=== PATIENT | female | born 1930 | race Native Hawaiian/Other Pacific Islander ===

== ENCOUNTER 2017-10-13 08:48 | Inpatient (IN) | payer MEDICARE, OTHER ==
--- NOTE | 2017-10-13 09:21 | C.PDOC ---
History Of Present Illness 87-year-old female, PMHx includes Hypertension, and Arthritis in B/L knees, presents to the emergency department with complaints of weakness over the past few days. Son notes that she fell on her left side three days ago and sustained injury to her left shoulder, ribs, and knee. Denies hitting her head. Son notes that she usually uses a walker at home but it has been increasing painful to do some and she has been feeling weaker. Patient denies any chest pain, shortness of breath, decreased appetite, nausea/vomiting, headache or any other associated symptoms. Time Seen by Provider: 10/13/17 09:05 Chief Complaint (Nursing): Lower Extremity Problem/Injury History Per: Patient History/Exam Limitations: no limitations Current Symptoms Are (Timing): Still Present Past Medical History Reviewed: Historical Data, Nursing Documentation, Vital Signs Vital Signs: Last Vital Signs Temp 98.5 F 10/13/17 15:56 Pulse 96 H 10/13/17 15:56 Resp 18 10/13/17 15:56 BP 136/69 10/13/17 15:56 Pulse Ox 95 10/13/17 15:56 - Medical History PMH: HTN Family History: States: No Known Family Hx - Social History Hx Alcohol Use: No Hx Substance Use: No Review Of Systems Constitutional: Positive for: Weakness. Negative for: Fever Cardiovascular: Negative for: Chest Pain, Palpitations Respiratory: Negative for: Shortness of Breath Gastrointestinal: Negative for: Nausea, Vomiting, Abdominal Pain, Diarrhea Musculoskeletal: Positive for: Shoulder Pain, Back Pain, Leg Pain Neurological: Negative for: Weakness, Numbness, Dizziness Physical Exam - Physical Exam Appears: Non-toxic, No Acute Distress Skin: Warm, Dry, No Rash Head: Atraumatic, Normacephalic Eye(s): bilateral: Normal Inspection, EOMI Nose: Normal Oral Mucosa: Moist Lips: Normal Appearing Neck: Normal ROM, Supple Chest: Symmetrical, Tenderness (left chest wall) Cardiovascular: Rhythm Regular Respiratory: Normal Breath Sounds, No Accessory Muscle Use Gastrointestinal/Abdominal: Soft, No Tenderness Back: No CVA Tenderness, No Vertebral Tenderness Extremity: Normal ROM, Tenderness, No Calf Tenderness, Capillary Refill (< 2 sec ), No Deformity, Swelling (diffusely to B/L knees and effusions, (+) mild tenderness to anterior left shoulder) ED Course And Treatment - Laboratory Results Result Diagrams: 10/13/17 09:44 10/13/17 09:44 O2 Sat by Pulse Oximetry: 97 (RA) Pulse Ox Interpretation: Normal - Other Rad left knee X-Ray: Interpreted by Me, Viewed By Me Interpretation: arthritis shoulder X-Ray: Interpreted by Me, Viewed By Me Interpretation: (+) DJD, no fx rib L X-Ray: Interpreted by Me, Viewed By Me Interpretation: no fx or pnuemothorax Progress Note: EKG, Bloodwork, UA, and XRs ordered and reviewed. XR's reveal arthritis. No fracture or acute findings. Patient was ambulated unsuccessfully, states she is feeling weak. Case discussed with Dr Ye Mullen, agrees to admit patient for further observation and treatment. Disposition - Disposition Disposition: HOSPITALIZED Disposition Time: 14:00 Condition: STABLE - Clinical Impression Clinical Impression: Weakness, Unable to ambulate - Scribe Statement The provider has reviewed the documentation as recorded by the Scribe (Dwain Gaspar) All medical record entries made by the Scribe were at my direction and personally dictated by me. I have reviewed the chart and agree that the record accurately reflects my personal performance of the history, physical exam, medical decision making, and the department course for this patient. I have also personally directed, reviewed, and agree with the discharge instructions and disposition.
[2017-10-13 09:51] LABS: BASO % 0.3 % (0.0-2.0); EOS % 0.1 % (0.0-4.0); HEMOGLOBIN 10.7 g/dL (11.0-16.0); LYMPH % 12.5 % (20.0-40.0); MEAN CORPUSCULAR HEMOGLOBIN 30.6 pg (27.0-31.0); MEAN CORPUSCULAR HGB CONC 34.4 g/dL (33.0-37.0); MEAN PLATELET VOLUME 7.6 fL (7.2-11.7); MONO # 1.4 K/uL (0.0-0.8); MONO % 17.9 % (0.0-10.0); NEUT # 5.3 K/uL (1.8-7.0); NEUT % 69.2 % (50.0-75.0); NRBC % 0.1 % (0.0-2.0); RBC 3.5 Mil/uL (3.80-5.20); RED CELL DISTRIBUTION WIDTH 13.6 % (11.5-14.5); WHITE BLOOD COUNT 7.6 K/uL (4.8-10.8)
[2017-10-13 10:10] LABS: ALB/GLOB RATIO 1.1 (1.0-2.1); ALBUMIN 3.5 g/dL (3.5-5.0); ALT/SGPT 31 U/L (9-52); AST/SGOT 35 U/L (14-36); BLOOD UREA NITROGEN 20 mg/dL (7-17); GFR AFRICAN-AMERICAN > 60; GFR NON-AFRICAN AMERICAN > 60
[2017-10-13 11:32] LABS: URINE BILIRUBIN NEGATIVE (NEGATIVE); URINE BLOOD 2+ (NEGATIVE); URINE CLARITY Clear (Clear); URINE COLOR Yellow (YELLOW); URINE GLUCOSE (UA) NORMAL (Normal); URINE LEUKOCYTE ESTERASE NEG Leu/uL (Negative); URINE PROTEIN 1+ mg/dL (NEGATIVE); URINE UROBILINOGEN NORMAL mg/dL (0.2-1.0)
--- NOTE | 2017-10-13 13:13 | RAD ---
PROCEDURE: Left Knee Radiographs. HISTORY: Pain. COMPARISON: None. FINDINGS: BONES: No acute fracture or destructive bony lesion identified. JOINTS: No subluxation or dislocation is appreciate however there is gross lateral joint compartment space narrowing as well as the patellofemoral articulation with prominent articular cortical sclerosis and marginal osteophyte development have advanced osteoarthritis. Moderate similar changes affect the medial femorotibial compartment and there is a degenerative valgus deformity appreciated as well. A mild suprapatellar bursa effusion is evident and medial knee soft tissues appears somewhat edematous. JOINT EFFUSION: As above. OTHER FINDINGS: None. IMPRESSION: Advanced osteoarthritis as discussed above with related valgus deformity appearing mild. No acute fracture, subluxation or dislocation. Medial extracapsular soft tissue edema is suggested. MRI can be utilized for additional detail elevation if warranted.
--- NOTE | 2017-10-13 13:16 | RAD ---
PROCEDURE: Radiographs of the Left Ribs. HISTORY: trauma COMPARISON: None available. TECHNIQUE: Frontal radiograph of the chest and multiple oblique radiographs of the left ribs were obtained. FINDINGS: LEFT RIBS: No fracture or focal lesion visualized. Diffuse osteopenia suggests osteoporosis. OTHER FINDINGS: None. IMPRESSION: No fracture of the left ribs is appreciated. Diffuse osteopenia suggests osteoporosis.
--- NOTE | 2017-10-13 13:18 | RAD ---
PROCEDURE: Radiographs of the Left Shoulder HISTORY: trauma COMPARISON: No prior. FINDINGS: BONES: No acute fracture or destructive bony lesion identified. These osteopenia suggests osteoporosis. JOINTS: Advanced joint space narrowing, cortical sclerosis and marginal osteophyte development at the clinic humeral joint is compatible with osteoarthritis with lesser degenerative changes insert present at the acromioclavicular joint. SOFT TISSUES: Calcific changes superior to the region of the greater tuberosity of the proximal left humerus suggest calcific tendinosis. OTHER FINDINGS: None. IMPRESSION: No acute fracture, subluxation or dislocation evident. Advanced osteoarthritis is appreciate the glenohumeral joint and appears moderate at the acromioclavicular joint with calcific tendinosis suggested in local left shoulder soft tissues.
--- NOTE | 2017-10-13 13:52 | CP.PCM.HP ---
Past Patient History - Past Social History Smoking Status: Never Smoked - CARDIAC Hx Hypertension: Yes - PSYCHIATRIC Hx Substance Use: No Meds Allergies/Adverse Reactions: Allergies Allergy/AdvReac Type Severity Reaction Status Date / Time No Known Allergies Allergy Verified 10/13/17 09:15 Physical Exam - Constitutional Appears: Well - Head Exam Head Exam: ATRAUMATIC, NORMAL INSPECTION, NORMOCEPHALIC - Eye Exam Eye Exam: EOMI, Normal appearance, PERRL Pupil Exam: NORMAL ACCOMODATION, PERRL - ENT Exam ENT Exam: Mucous Membranes Moist, Normal Exam - Neck Exam Neck exam: Positive for: Normal Inspection - Respiratory Exam Respiratory Exam: Decreased Breath Sounds - Cardiovascular Exam Cardiovascular Exam: REGULAR RHYTHM, +S1, +S2 - GI/Abdominal Exam GI & Abdominal Exam: Diminished Bowel Sounds, Soft - Rectal Exam Rectal Exam: Deferred Results - Vital Signs Recent Vital Signs: Last Vital Signs Temp 98.5 F 10/13/17 13:06 Pulse 70 10/13/17 13:06 Resp 17 10/13/17 13:06 BP 120/48 L 10/13/17 13:06 Pulse Ox 97 10/13/17 13:42 - Labs Result Diagrams: 10/13/17 09:44 10/13/17 09:44 Labs: Laboratory Results - last 24 hr 10/13/17 10/13/17 10/13/17 09:44 09:44 11:21 WBC 7.6 RBC 3.50 L Hgb 10.7 L Hct 31.1 L MCV 89.0 MCH 30.6 MCHC 34.4 RDW 13.6 Plt Count 149 MPV 7.6 Neut % (Auto) 69.2 Lymph % (Auto) 12.5 L Cuming % (Auto) 17.9 H Eos % (Auto) 0.1 Baso % (Auto) 0.3 Neut # (Auto) 5.3 Lymph # (Auto) 1.0 Cuming # (Auto) 1.4 H Eos # (Auto) 0.0 Baso # (Auto) 0.0 Sodium 136 Potassium 4.1 Chloride 97 L Carbon Dioxide 27 Anion Gap 17 BUN 20 H Creatinine 0.8 Est GFR ( Amer) > 60 Est GFR (Non-Af Amer) > 60 Random Glucose 136 H Calcium 9.0 Total Bilirubin 0.9 AST 35 ALT 31 Alkaline Phosphatase 70 Total Creatine Kinase 77 CK-MB (Mass) 0.40 Troponin I 0.0430 Total Protein 6.7 Albumin 3.5 Globulin 3.3 Albumin/Globulin Ratio 1.1 Urine Color Yellow Urine Clarity Clear Urine pH 7.0 Ur Specific Dixon 1.013 Urine Protein 1+ H Urine Glucose (UA) Normal Urine Ketones Negative Urine Blood 2+ H Urine Nitrate Negative Urine Bilirubin Negative Urine Urobilinogen Normal Ur Leukocyte Esterase Neg Urine WBC (Auto) 1 Urine RBC (Auto) 9 H
--- NOTE | 2017-10-13 15:05 | RAD ---
PROCEDURE: Right Knee Radiographs. HISTORY: pain to right knee also, S/P fall COMPARISON: None. FINDINGS: BONES: Questionable nondisplaced medial tibial plateau fracture. JOINTS: Tricompartmental narrowing with severe degenerative spurring, worst in the medial tibial femoral compartment. JOINT EFFUSION: Moderate. OTHER FINDINGS: None. IMPRESSION: Questionable nondisplaced medial tibial plateau fracture. Severe arthritic changes as described above.
[2017-10-13] MEDS: Pantoprazole 40 mg EC Tab PO SCH (15:43)
[2017-10-13] MEDS: Omega-3-Acid Ethyl Esters 1 GM Cap PO SCH (17:21)
--- NOTE | 2017-10-13 17:44 | CT ---
PROCEDURE: CT HEAD WITHOUT CONTRAST. HISTORY: R/O HEMMORHAGE COMPARISON: None available. TECHNIQUE: Axial computed tomography images were obtained through the head/brain without intravenous contrast. Radiation dose: Total exam DLP = 883.74 mGy-cm. This CT exam was performed using one or more of the following dose reduction techniques: Automated exposure control, adjustment of the mA and/or kV according to patient size, and/or use of iterative reconstruction technique. FINDINGS: HEMORRHAGE: No intracranial hemorrhage. BRAIN: Good corticomedullary differentiation is seen. Diffuse expansion of the ventriculosulcal and cisternal spaces is appreciated with white matter lucency compatible with diffuse cerebral atrophy and chronic microangiopathy. No suspicious extra-axial fluid collection is identified and the midline brain anatomy appears grossly nonfocal as imaged. There is no mass effect throughout. VENTRICLES: Unremarkable. No hydrocephalus. CALVARIUM: Unremarkable. PARANASAL SINUSES: Unremarkable as visualized. No significant inflammatory changes. MASTOID AIR CELLS: Unremarkable as visualized. No inflammatory changes. OTHER FINDINGS: None. IMPRESSION: Age related neuro degenerative changes are identified without acute intracranial findings as discussed above. Follow up CT or MRI are available if clinically warranted.
--- NOTE | 2017-10-14 02:47 | PCM.STROKE ---
<GlenysJake - Last Filed: 10/14/17 03:35> Interval History Critical Care Time Spent (in minutes): 38 Stroke Date: 10/14/17 Additional history per family/caregiver (name): according to caregiver who lives with patient, able to answer all questions Interval History: patient fell, and is now altered and unable to move xtremities previously able to ambulate with cane and answer questions normally - Treatment DVT Prophylaxis: Lovenox Antiplatelet: Acetylsalicylic acid (ASA) - Education Written Stroke Education provided regarding: personal risk factors, stroke warning sign/symptoms, how to activate emergency medical services, need to follow up after discharge Hx Atrial Fibrillation: No Hx Atrial Flutter: No NIHSS Stroke Scale - Date/Time Evaluation Performed Date Performed: 10/14/17 Time Performed: 02:47 When Was NIHSS Performed: Baseline - How Severe is the Stroke Level of Consciousness: 1=Drowsy LOC to Questions: 2=Neither correct LOC to commands: 1=Obeys one correctly Best Gaze: 1=Partial gaze palsy Visual: 0=No visual loss Facial: 1=Minor asymmetry Motor Arm - Left: 2=Falls before 10 sec Motor Arm - Right: 2=Falls before 10 sec Motor Leg - Left: 2=Falls before 5 sec Motor Leg - Right: 2=Falls before 5 sec Limb Ataxia: 2=Present both Sensory: 0=Normal Best Language: 1=Mild to moderate aphasia Dysarthia: 1=Mild to moderate slurring Extinction & Inattention (Neglect): 0=Normal, no object Score: 18 Exam - Vital Sign Vital Signs: Temp Pulse Resp BP Pulse Ox 99.6 F 85 20 152/67 H 96 10/13/17 23:30 10/13/17 23:30 10/13/17 23:30 10/13/17 23:30 10/13/17 23:30 Constitutional: No distress Ophthalmoscopic: absent: papilledema, hemorrhage Right Pupil: Reactive Left Pupil: Reactive Cardiovascular: Regular rate & rhythm Mental Status: Abnormal: Orientation, Memory, Attention, Language, Fund of Knowledge Motor: Tone - Data reviewed Laboratory results: 10/13/17 09:44 10/13/17 09:44 Assessment and Plan - Assessment and Plan (Free Text) Assessment: Code Stroke called repeated head CT; initial was negative for any acute finding Formal read shows mild cerebral and cerebal atrophy consistent with previous findings Patient has fever of 102.9 will order CBC CMP UA and Ucultures Chest X-Ray Blood cultures will give Zosyn and Vancomycin stat dose As per Dr. cisneros does not need aspirin or statin will f/u with septic workup as above Case discussed and seen with Dr. Cisneros <Olman Cisneros P - Last Filed: 10/14/17 07:55> Interval History - Education Written Stroke Education provided regarding: personal risk factors, stroke warning sign/symptoms, how to activate emergency medical services, need to follow up after discharge Exam - Vital Sign Vital Signs: Temp Pulse Resp BP Pulse Ox 100.1 F H 78 20 126/71 97 10/14/17 06:26 10/14/17 03:30 10/14/17 03:15 10/14/17 03:15 10/14/17 03:15 - Data reviewed Laboratory results: 10/14/17 03:53 10/14/17 03:53 Attending/Attestation - Attestation I have personally seen and examined this patient.: Yes I have fully participated in the care of the patient.: Yes I have reviewed all pertinent clinical information, including history, physical exam and plan: Yes Notes (Text): 10/14/17 07:47 Patient was assessed post CT by me after code stroke was called on the patient, patient's speech was unclear but knew she is 87 yrs old, mentioned month is october , was able to follow simple commands, moving both ext, left limited due to chronic shoulder pain, both knee swollen, but moving. Patient felt hot at time of exam to me temp recheck rectal 102.9F, not sob, no abd tenderness, no visible skin changes. AMS suspected from acute febrile episode, ua was not impressive, clinically no pna, but cmg on cxr, and poor film, clinically bacterimia suspected. Will continue the vanco and zosyn started empirically.
[2017-10-14] MEDS ORDERED: Sodium Chloride 0.9% 1,000 ML IV ONE (03:22)
[2017-10-14] MEDS ORDERED: Vancomycin 1 GM in Sodium Chloride 0.9% 200 ML IVPB STA (03:29)
[2017-10-14 03:43] LABS: VENOUS BLOOD GAS BASE EXCESS 0.6 mmol/L (0.0-2.0); VENOUS BLOOD GAS PCO2 36 mmHg (40-60); VENOUS BLOOD GAS PO2 40 mm/Hg (30-55); VENOUS BLOOD PH 7.44 (7.32-7.43)
[2017-10-14 04:00] LABS: BASO % 0.4 % (0.0-2.0); EOS % 0.1 % (0.0-4.0); HEMOGLOBIN 10.6 g/dL (11.0-16.0); LYMPH # 1.2 K/uL (1.0-4.3); MEAN CELL VOLUME 89.4 fL (81.0-99.0); MEAN CORPUSCULAR HEMOGLOBIN 30.3 pg (27.0-31.0); MEAN CORPUSCULAR HGB CONC 33.9 g/dL (33.0-37.0); MEAN PLATELET VOLUME 8.2 fL (7.2-11.7); MONO # 1.4 K/uL (0.0-0.8); MONO % 15.2 % (0.0-10.0); NEUT # 6.4 K/uL (1.8-7.0); NEUT % 71.3 % (50.0-75.0); RBC 3.48 Mil/uL (3.80-5.20); RED CELL DISTRIBUTION WIDTH 13.2 % (11.5-14.5); WHITE BLOOD COUNT 8.9 K/uL (4.8-10.8)
[2017-10-14] MEDS ORDERED: Piperacill/Tazo 3.375gm in Dex 3.375 GM/50 ML BAG IVPB ONE (04:00)
[2017-10-14 04:09] LABS: URINE BILIRUBIN NEGATIVE (NEGATIVE); URINE BLOOD 2+ (NEGATIVE); URINE CLARITY Hazy (Clear); URINE COLOR Yellow (YELLOW); URINE GLUCOSE (UA) NORMAL (Normal); URINE LEUKOCYTE ESTERASE NEG Leu/uL (Negative); URINE PROTEIN 2+ mg/dL (NEGATIVE); URINE UROBILINOGEN NORMAL mg/dL (0.2-1.0)
[2017-10-14 04:27] LABS: ALBUMIN 3.4 g/dL (3.5-5.0); ALT/SGPT 42 U/L (9-52); AST/SGOT 37 U/L (14-36); BLOOD UREA NITROGEN 20 mg/dL (7-17); CALCIUM 8.6 mg/dl (8.6-10.4); GFR AFRICAN-AMERICAN > 60; GFR NON-AFRICAN AMERICAN 52
--- NOTE | 2017-10-14 07:51 | CT ---
PROCEDURE: CT HEAD WITHOUT CONTRAST. HISTORY: stroke like symptoms COMPARISON: 10/13/2017 TECHNIQUE: Axial computed tomography images were obtained through the head/brain without intravenous contrast. Radiation dose: Total exam DLP = 2401 mGy-cm. This CT exam was performed using one or more of the following dose reduction techniques: Automated exposure control, adjustment of the mA and/or kV according to patient size, and/or use of iterative reconstruction technique. FINDINGS: HEMORRHAGE: No intracranial hemorrhage. BRAIN: Mild cerebral and cerebellar atrophy.Scattered focal lucencies in the subcortical and periventricular white matter suggestive for chronic microvascular ischemic change. Bilateral basal ganglia calcifications. Punctate bilateral basal ganglia lacunar infarcts. VENTRICLES: Unremarkable. No hydrocephalus. CALVARIUM: Unremarkable. PARANASAL SINUSES: Mucosal thickening of the left maxillary sinus. MASTOID AIR CELLS: Unremarkable as visualized. No inflammatory changes. OTHER FINDINGS: Intracranial arterial calcifications. Incidentally noted is a heterogeneous and prominent thyroid. Prominent aorta with calcification. Degenerative changes in the cervical spine. IMPRESSION: Mild cerebral and cerebellar atrophy. Chronic microvascular ischemic changes. If focal neurologic deficit persists, consider MRI. These findings were preliminarily reported at 3:21 a.m. on 10/14/[address] Dannie Dwyer from [facility].
[2017-10-14] MEDS ORDERED: Vancomycin 1 gm/NS 200 ml 1 GM/200 ML BAG IVPB SCH (08:00)
[2017-10-14] MEDS ORDERED: Piperacill/Tazo 3.375gm in Dex 3.375 GM/50 ML BAG IVPB SCH (08:00)
--- NOTE | 2017-10-14 08:17 | RAD ---
Chest x-ray single frontal view History: Altered mental status. Comparison: None available. Findings: Diffuse chronic interstitial lung markings. Superimposed increased patchy markings in the left mid to lower lung zone and right hilar region. Biapical pleural thickening with upper lobe granulomatous changes. Scattered nodularity in both lung das. Enlarged ectatic aorta. Cardiomegaly. Degenerative changes in the spine and shoulders. Impression: Diffuse chronic interstitial lung markings. Superimposed increased patchy markings in the left mid to lower lung zone and right hilar region. Biapical pleural thickening with upper lobe granulomatous changes. Scattered nodularity in both lung das. Enlarged ectatic aorta. Cardiomegaly.
[2017-10-14] MEDS ORDERED: AMLODIPINE BESYLATE PO SCH (10:00)
[2017-10-14] MEDS ORDERED: BENAZEPRIL PO SCH (10:00)
--- NOTE | 2017-10-14 10:54 | RAD ---
HISTORY: lower extremities weakness COMPARISON: No prior. FINDINGS: BONES: Alignment maintained. No fracture. DISC SPACES: Normal. SOFT TISSUES: Normal. OTHER FINDINGS: None. IMPRESSION: Normal radiographs of the thoracic spine.
[2017-10-14] MEDS: Pantoprazole 40 mg EC Tab PO SCH (11:33)
[2017-10-14] MEDS: Enoxaparin 40 mg Syringe SC SCH (11:34)
[2017-10-14] MEDS: Calcium-Vit D 500 mg-200 Units Tab UD PO SCH (11:39)
--- NOTE | 2017-10-14 11:50 | CP.PCM.CON ---
History of Present Illness - History of Present Illness History of Present Illness: INFECTIOUS DISEASE CONSULT. REASON FOR CONSULT; S/P FALL , NEW FEVER AND WEAKNESS. HPI: 87 year old female with past medical history significant for HTN, Hyperlipidemia, generalized Osteoarthritis presents s/p fall four days earlier. Patient lives with son who was able to provide most of the medical history. Patient was apparently ambulating with her walker at home when she fell over. Patient was able to get back up and walk about though she complained of pain in her lower extremities. Patient typically ambulates with the use of a four point walker. She does not normally feel short of breath per her son. Son's noted an acute change in mentation overnight around 2/3AM on . Per family members, patient was slurring speech and not acting her norm. When vitals were checked, patient spiked a fever of 102.9. Because of acute change in mentation, and exam findings at that time, code stroke was called. Stat head CT, Vitals, labs and cultures were obtained. Neuro was consulted and recommendations were made. Per family, patient's fever responded to tylenol administration. Patient returned to baseline within 1.5 hours. INFECTIOUS DISEASE CONSULTATION REQUESTED FOR NEW ONSET OF FEVER AND WEAKNESS S/ P FALL. PRESENTLY PATIENT AWAKE AND RESPONSIVE. COMPLAINING OF RIGHT KNEE PAIN.PATIENT DENIES ANY HEADACHES, CHEST PAIN, SHORTNESS OF BREATH, ANY HISTORY OF SEIZURES IN THE PAST OR RECENT UPPER RESPIRATORY TRACT INFECTION.PATIENT DENIES DYSURIA, HEMATURIA, PARESTHESIAS AT THIS TIME. CHEST X-RAY ON ADMISSION SHOWED INCREASED INTERSTITIAL MARKINGS , ESPECIALLY LML AND LLL.ALSO SCATTERED NODULARITY BOTH LUNG CAI IS SEEN. CARDIOMEGALY ALSO NOTED. REPORTS OCCASIONAL DRY COUGH. DENIES HISTORY OF HEMOPTYSIS/OR HEMATEMESIS. NO HISTORY OF RECENT TRAVEL OR EXPOSURE TO ANY SICK CONTACTS. 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 absent: Chills, Headache - EENT Eyes: absent: Change in Vision, Photophobia Ears: absent: Ear Pain Nose/Mouth/Throat: absent: Mouth Lesions, Sore Throat - Cardiovascular Cardiovascular: absent: Chest Pain - Respiratory Respiratory: Cough (DRY COUGH.). absent: Hemoptysis, Excessive Mucous Production, Pain with Coughing - Gastrointestinal Gastrointestinal: absent: Abdominal Pain, Constipation, Diarrhea, Nausea, Vomiting - Genitourinary Genitourinary: absent: Difficulty Urinating, Urinary Hesitance, Bladder Distension - Musculoskeletal Musculoskeletal: As Per HPI, Arthralgias, Joint Swelling (RIGHT KNEE SWELLING AND PAIN ON MOVEMENT.) - Neurological Neurological: Abnormal Gait, Weakness. absent: Focal Weakness, Headaches, Paresthesias - Hematologic/Lymphatic Hematologic: As Per HPI. absent: Easy Bruising Past Patient History - Past Medical History & Family History Past Medical History?: Yes - Past Social History Smoking Status: Never Smoked - CARDIAC Hx Atrial Fibrillation: No - MUSCULOSKELETAL/RHEUMATOLOGICAL Hx Falls: Yes - PSYCHIATRIC Hx Substance Use: No Meds Allergies/Adverse Reactions: Allergies Allergy/AdvReac Type Severity Reaction Status Date / Time No Known Allergies Allergy Verified 10/13/17 09:15 - Medications Medications: Current Medications Acetaminophen (Tylenol 650 Mg Supp) 650 mg ME Q4 PRN PRN Reason: Fever >100.4 F Last Admin: 10/14/17 04:12 Dose: 650 mg Amlodipine Besylate (Norvasc) 5 mg PO DAILY [facility] Last Admin: 10/14/17 11:33 Dose: Not Given Calcium/Vitamin D (Oyster Shell Calcium/Vitamin D 500 Mg-200 Iu) 1 tab PO DAILY [facility] Last Admin: 10/14/17 11:39 Dose: 1 tab Enalapril Maleate (Vasotec) 5 mg PO DAILY [facility] Last Admin: 10/14/17 11:32 Dose: Not Given Enoxaparin Sodium (Lovenox) 40 mg SC DAILY [facility] Last Admin: 10/14/17 11:34 Dose: 40 mg Hydromorphone HCl (Dilaudid) 2 mg PO Q8H PRN PRN Reason: Pain, severe (8-10) Last Admin: 10/13/17 22:23 Dose: 2 mg Sodium Chloride (Sodium Chloride 0.9%) 1,000 mls @ 100 mls/hr IV .Q10H [facility] Piperacillin Sod/Tazobactam Sod (Zosyn 3.375 Gm Iv Premix) 3.375 gm in 50 mls @ 100 mls/hr IVPB Q6H [facility] PRN Reason: Protocol Vancomycin/Sodium Chloride (Vancomycin 1 Gm/Ns 200 Ml) 1 gm in 200 mls @ 133 mls/hr IVPB Q24H [facility] PRN Reason: Protocol Stop: 10/19/17 08:01 [id number] Ethyl Esters (Lovaza) 1 gm PO BID [facility] Last Admin: 10/13/17 17:21 Dose: 1 gm Pantoprazole Sodium (Protonix Ec Tab) 40 mg PO DAILY [facility] Last Admin: 10/14/17 11:33 Dose: 40 mg Rosuvastatin Calcium (Crestor) 20 mg PO HS [facility] Physical Exam - Constitutional Appears: No Acute Distress - Head Exam Head Exam: NORMAL INSPECTION, NORMOCEPHALIC - Eye Exam Eye Exam: EOMI, PERRL - ENT Exam ENT Exam: Normal Oropharynx - Neck Exam Neck exam: Positive for: Normal Inspection. Negative for: Meningismus - Respiratory Exam Respiratory Exam: Rhonchi (LEFT SIDE MORE THAN RIGHT.), NORMAL BREATHING PATTERN - Cardiovascular Exam Cardiovascular Exam: REGULAR RHYTHM, +S1, +S2 - GI/Abdominal Exam GI & Abdominal Exam: Normal Bowel Sounds, Soft. absent: Tenderness - Extremities Exam Extremities exam: Positive for: joint swelling (RIGHT KNEE SWOLLEN/? EFFUSION, WARM TO TOUCH AND TENDER), tenderness (ON MOVEMENT), pedal pulses present. Negative for: calf tenderness, pedal edema - Neurological Exam Neurological exam: Abnormal Gait (COULD NOT BE TESTED.), Alert, CN II-XII Intact - Psychiatric Exam Psychiatric exam: Normal Mood - Skin Skin Exam: Normal Color, Warm Results - Vital Signs Recent Vital Signs: Last Vital Signs Temp 98.1 F 10/14/17 07:00 Pulse 64 10/14/17 07:00 Resp 18 10/14/17 07:00 BP 106/56 L 10/14/17 11:32 Pulse Ox 98 10/14/17 07:00 - Labs Result Diagrams: 10/14/17 03:53 10/14/17 03:53 Labs: Laboratory Results - last 24 hr 10/14/17 10/14/17 10/14/17 03:35 03:53 03:53 WBC 8.9 RBC 3.48 L Hgb 10.6 L Hct 31.1 L MCV 89.4 MCH 30.3 MCHC 33.9 RDW 13.2 Plt Count 132 MPV 8.2 Neut % (Auto) 71.3 Lymph % (Auto) 13.0 L [place] % (Auto) 15.2 H Eos % (Auto) 0.1 Baso % (Auto) 0.4 Neut # (Auto) 6.4 Lymph # (Auto) 1.2 [place] # (Auto) 1.4 H Eos # (Auto) 0.0 Baso # (Auto) 0.0 pO2 40 VBG pH 7.44 H VBG pCO2 36 L VBG HCO3 24.9 VBG Total CO2 25.6 VBG O2 Sat (Calc) 84.6 H VBG Base Excess 0.6 VBG Potassium 3.9 Sodium 133.0 136 Chloride 101.0 98 Glucose 149 H Lactate 0.9 Potassium 4.2 Carbon Dioxide 25 Anion Gap 17 BUN 20 H Creatinine 1.0 Est GFR ( Amer) > 60 Est GFR (Non-Af Amer) 52 Random Glucose 148 H Calcium 8.6 Total Bilirubin 1.0 AST 37 H ALT 42 Alkaline Phosphatase 63 Total Protein 6.7 Albumin 3.4 L Globulin 3.3 Albumin/Globulin Ratio 1.0 Venous Blood Potassium 3.9 Urine Color Urine Clarity Urine pH Ur Specific [place] Urine Protein Urine Glucose (UA) Urine Ketones Urine Blood Urine Nitrate Urine Bilirubin Urine Urobilinogen Ur Leukocyte Esterase Urine WBC (Auto) Urine RBC (Auto) 10/14/17 03:54 WBC RBC Hgb Hct MCV MCH MCHC RDW Plt Count MPV Neut % (Auto) Lymph % (Auto) [place] % (Auto) Eos % (Auto) Baso % (Auto) Neut # (Auto) Lymph # (Auto) [place] # (Auto) Eos # (Auto) Baso # (Auto) pO2 VBG pH VBG pCO2 VBG HCO3 VBG Total CO2 VBG O2 Sat (Calc) VBG Base Excess VBG Potassium Sodium Chloride Glucose Lactate Potassium Carbon Dioxide Anion Gap BUN Creatinine Est GFR ( Amer) Est GFR (Non-Af Amer) Random Glucose Calcium Total Bilirubin AST ALT Alkaline Phosphatase Total Protein Albumin Globulin Albumin/Globulin Ratio Venous Blood Potassium Urine Color Yellow Urine Clarity Hazy Urine pH 7.0 Ur Specific [place] 1.013 Urine Protein 2+ H Urine Glucose (UA) Normal Urine Ketones Negative Urine Blood 2+ H Urine Nitrate Negative Urine Bilirubin Negative Urine Urobilinogen Normal Ur Leukocyte Esterase Neg Urine WBC (Auto) 2 Urine RBC (Auto) 19 H - Imaging and Cardiology Chest x-ray Status: Report reviewed by me (see full report.) Assessment & Plan (1) Fever Assessment and Plan: pancultures UA urine cultures Patient has a Feliciano catheter insertion last night. continue IV Zosyn ,decrease dose to 3.375 q 8 hourly 10/13/17. add IV Zithromax 500 mg once a day daily 10/14/17. Patient got 1 dose of vancomycin 1 g on admission on 10/13/17. Status: Acute (2) Community acquired bacterial pneumonia Assessment and Plan: w/u for CAP VS ASPIRATION PNEUMONIA. ESR CRP. ATYPICAL TITERS. MRSA SCREEN. CONSIDER CT CHESTAS SCATTERED NODULARITY BOTH LUNG CAI SEEN R/O MALIGNANCY. CONTINUE iv ZOSYN AND ZITHROMAX ORDERED. Status: Acute (3) TIA (transient ischemic attack) Assessment and Plan: INITIAL ct HEAD-ATROPHY SEE FULL REPORT nEUROLOGY ON CASE. wORKUP IN PROGRESS. Status: Acute (4) Fall Status: Acute (5) HTN (hypertension) Assessment and Plan: PER PMD. Status: Chronic (6) Primary osteoarthritis of right knee Assessment and Plan: PATIENT HAS PAIN AND WARMTH RIGHT KNEE/WITH EFFUSION ORTHO ON CASE THE CASE. ANALGESICS SERUM URIC ACID, RHEUMATOID FACTOR,LEXIE.. PER ORTHO Status: Acute
--- NOTE | 2017-10-14 12:39 | CP.PCM.CON ---
History of Present Illness - History of Present Illness History of Present Illness: Mrs. Jacobo is an 87-year-old woman with a past medical history of HTN, HLD, who , according to her assistant gm of content & delivery, had a witnessed fall, and is now altered and unable to move extremities, while previously able to ambulate with cane and answer questions normally. She was brought in and found to have pneumonia and started on antibiotics. CT scan of the head did not show any acute findings. Medial tibial fracture was reported on the right side. The patient's mental status is now basically at her baseline after treatment of infection. Review of Systems - Review of Systems All systems: reviewed and no additional remarkable complaints except Past Patient History - Past Medical History & Family History Past Medical History?: Yes - Past Social History Smoking Status: Never Smoked - CARDIAC Hx Atrial Fibrillation: No - MUSCULOSKELETAL/RHEUMATOLOGICAL Hx Falls: Yes - PSYCHIATRIC Hx Substance Use: No Meds Allergies/Adverse Reactions: Allergies Allergy/AdvReac Type Severity Reaction Status Date / Time No Known Allergies Allergy Verified 10/13/17 09:15 - Medications Medications: Current Medications Acetaminophen (Tylenol 650 Mg Supp) 650 mg SD Q4 PRN PRN Reason: Fever >100.4 F Last Admin: 10/14/17 04:12 Dose: 650 mg Amlodipine Besylate (Norvasc) 5 mg PO DAILY [facility] Last Admin: 10/14/17 11:33 Dose: Not Given Calcium/Vitamin D (Oyster Shell Calcium/Vitamin D 500 Mg-200 Iu) 1 tab PO DAILY [facility] Last Admin: 10/14/17 11:39 Dose: 1 tab Enalapril Maleate (Vasotec) 5 mg PO DAILY [facility] Last Admin: 10/14/17 11:32 Dose: Not Given Enoxaparin Sodium (Lovenox) 40 mg SC DAILY [facility] Last Admin: 10/14/17 11:34 Dose: 40 mg Hydromorphone HCl (Dilaudid) 2 mg PO Q8H PRN PRN Reason: Pain, severe (8-10) Last Admin: 10/13/17 22:23 Dose: 2 mg Sodium Chloride (Sodium Chloride 0.9%) 1,000 mls @ 100 mls/hr IV .Q10H [facility] Piperacillin Sod/Tazobactam Sod (Zosyn 3.375 Gm Iv Premix) 3.375 gm in 50 mls @ 100 mls/hr IVPB Q6H [facility] PRN Reason: Protocol Vancomycin/Sodium Chloride (Vancomycin 1 Gm/Ns 200 Ml) 1 gm in 200 mls @ 133 mls/hr IVPB Q24H [facility] PRN Reason: Protocol Stop: 10/19/17 08:01 Piperacillin Sod/Tazobactam (Sod 3.375 gm/ Sodium Chloride) 100 mls @ 200 mls/ hr IVPB Q8H [facility] PRN Reason: Protocol Azithromycin 500 mg/ Sodium (Chloride) 250 mls @ 250 mls/hr IVPB DAILY [facility] PRN Reason: Protocol [id number] Ethyl Esters (Lovaza) 1 gm PO BID [facility] Last Admin: 10/13/17 17:21 Dose: 1 gm Pantoprazole Sodium (Protonix Ec Tab) 40 mg PO DAILY [facility] Last Admin: 10/14/17 11:33 Dose: 40 mg Rosuvastatin Calcium (Crestor) 20 mg PO HS [facility] Physical Exam - Respiratory Exam Respiratory Exam: Decreased Breath Sounds, Prolonged Expiratory Phase - Cardiovascular Exam Cardiovascular Exam: REGULAR RHYTHM - GI/Abdominal Exam GI & Abdominal Exam: Normal Bowel Sounds, Soft. absent: Tenderness - Neurological Exam Neurological exam: Abnormal Gait, Alert, CN II-XII Intact, Oriented x3 Additional comments: Bilateral lower extremity movement limited by pain, but worse on the right. Upper extremities are symmetrical. No focal neurological deficits. Noted. Results - Vital Signs Recent Vital Signs: Last Vital Signs Temp 98.1 F 10/14/17 07:00 Pulse 64 10/14/17 07:00 Resp 18 10/14/17 07:00 BP 106/56 L 10/14/17 11:32 Pulse Ox 98 10/14/17 07:00 - Labs Result Diagrams: 10/14/17 03:53 10/14/17 03:53 Labs: Laboratory Results - last 24 hr 10/14/17 10/14/17 10/14/17 03:35 03:53 03:53 WBC 8.9 RBC 3.48 L Hgb 10.6 L Hct 31.1 L MCV 89.4 MCH 30.3 MCHC 33.9 RDW 13.2 Plt Count 132 MPV 8.2 Neut % (Auto) 71.3 Lymph % (Auto) 13.0 L [place] % (Auto) 15.2 H Eos % (Auto) 0.1 Baso % (Auto) 0.4 Neut # (Auto) 6.4 Lymph # (Auto) 1.2 [place]key # (Auto) 1.4 H Eos # (Auto) 0.0 Baso # (Auto) 0.0 pO2 40 VBG pH 7.44 H VBG pCO2 36 L VBG HCO3 24.9 VBG Total CO2 25.6 VBG O2 Sat (Calc) 84.6 H VBG Base Excess 0.6 VBG Potassium 3.9 Sodium 133.0 136 Chloride 101.0 98 Glucose 149 H Lactate 0.9 Potassium 4.2 Carbon Dioxide 25 Anion Gap 17 BUN 20 H Creatinine 1.0 Est GFR ( Amer) > 60 Est GFR (Non-Af Amer) 52 Random Glucose 148 H Calcium 8.6 Total Bilirubin 1.0 AST 37 H ALT 42 Alkaline Phosphatase 63 Total Protein 6.7 Albumin 3.4 L Globulin 3.3 Albumin/Globulin Ratio 1.0 Venous Blood Potassium 3.9 Urine Color Urine Clarity Urine pH Ur Specific [place] Urine Protein Urine Glucose (UA) Urine Ketones Urine Blood Urine Nitrate Urine Bilirubin Urine Urobilinogen Ur Leukocyte Esterase Urine WBC (Auto) Urine RBC (Auto) 10/14/17 03:54 WBC RBC Hgb Hct MCV MCH MCHC RDW Plt Count MPV Neut % (Auto) Lymph % (Auto) [place]key % (Auto) Eos % (Auto) Baso % (Auto) Neut # (Auto) Lymph # (Auto) [place]key # (Auto) Eos # (Auto) Baso # (Auto) pO2 VBG pH VBG pCO2 VBG HCO3 VBG Total CO2 VBG O2 Sat (Calc) VBG Base Excess VBG Potassium Sodium Chloride Glucose Lactate Potassium Carbon Dioxide Anion Gap BUN Creatinine Est GFR ( Amer) Est GFR (Non-Af Amer) Random Glucose Calcium Total Bilirubin AST ALT Alkaline Phosphatase Total Protein Albumin Globulin Albumin/Globulin Ratio Venous Blood Potassium Urine Color Yellow Urine Clarity Hazy Urine pH 7.0 Ur Specific [place] 1.013 Urine Protein 2+ H Urine Glucose (UA) Normal Urine Ketones Negative Urine Blood 2+ H Urine Nitrate Negative Urine Bilirubin Negative Urine Urobilinogen Normal Ur Leukocyte Esterase Neg Urine WBC (Auto) 2 Urine RBC (Auto) 19 H Assessment & Plan (1) Toxic metabolic encephalopathy Assessment and Plan: Likely due to infection. Continue treatment of underlying cause. Stroke is less likely, but an MRI of the brain can be obtained without contrast for further evaluation. Continue fluids with NS at 75 mL/hr. PT/OT eval and treatment. Thank you. Status: Acute Priority: High
[2017-10-14] MEDS: Omega-3-Acid Ethyl Esters 1 GM Cap PO SCH ×2 (14:05→17:36)
[2017-10-14] MEDS: Piperacill/Tazo 3.375gm in Dex 3.375 GM/50 ML BAG IVPB SCH ×2 (14:05→22:00)
[2017-10-14] MEDS: Azithromycin 500 MG in Sodium Chloride 0.9% 250 ML IVPB SCH (14:44)
--- NOTE | 2017-10-14 14:51 | RAD ---
PROCEDURE: Radiographs of the Lumbar Spine. HISTORY: lower extremities weakness COMPARISON: No prior. FINDINGS: BONES: There is severe diffuse bone demineralization. There is normal lumbar lordosis. There is no acute fracture. There is degenerative grade 1 anterior listhesis of L4 on L5. DISC SPACES: There is multilevel degenerative disc disease with anterior osteophytes, reduced disc heights and multilevel facet arthropathy, worse at L4-5. OTHER FINDINGS: There are atherosclerotic vascular calcifications an infrarenal aortic aneurysm. IMPRESSION: No acute fracture. Multilevel degenerative disc disease, worse at L4-5 with grade 1 anterior listhesis of L4 on L5. Infrarenal abdominal aortic aneurysm.
--- NOTE | 2017-10-14 14:53 | RAD ---
PROCEDURE: Cervical Spine Radiographs. HISTORY: Pain. COMPARISON: None. FINDINGS: BONES: There is straightening of the cervical spine with loss of normal cervical lordosis. Vertebral alignment is normal. Vertebral height is maintained. There is no acute fracture. The craniocervical junction is normal. There is moderate degenerative osteoarthrosis at the atlantoaxial joint. DISC SPACES: There is multilevel degenerative disc disease with anterior osteophytes, reduced disc heights and multilevel facet arthropathy, worse at C4-5 and C5-6 with. SOFT TISSUES: Normal. No prevertebral soft tissue swelling. OTHER FINDINGS: None. IMPRESSION: No acute fracture. Multilevel degenerative disc disease, worse at C4-5 and C5-6. Straightening of the cervical spine may be positional or related to muscle spasm.
--- NOTE | 2017-10-14 15:08 | CP.PCM.PN ---
Subjective - Date & Time of Evaluation Date of Evaluation: 10/14/17 Time of Evaluation: 15:50 - Subjective Subjective: Patient seen and examined in room 672 A at approximately 15:50PM Patient is currently a FULL CODE STATUS at this time. Her emergency contact is her son Terry Jacobo. He can be reached at [phone] CC: weakness HPI: 87 year old female with past medical history significant for HTN, Hyperlipidemia, Arthritis presents s/p fall four days earlier. Patient lives with son who was able to provide most of the medical history. Patient was apparently ambulating with her walker at home when she fell over. Patient was able to get back up and walk about though she complained of pain in her lower extremities. Patient typically ambulates with the use of a four point walker. She does not normally feel short of breath per her son. Son's noted an acute change in mentation overnight around 2/3AM on . Per family members, patient was slurring speech and not acting her norm. When vitals were checked, patient spiked a fever of 102.9. Because of acute change in mentation, and exam findings at that time, code stroke was called. Stat head CT, Vitals, labs and cultures were obtained. Neuro was consulted and recommendations were made. Per family, patient's fever responded to tylenol administration. Patient returned to baseline within 1.5 hours. Patient does admit to generalized aches. Patient denies subjective chills, chest pain, palpitations, dyspnea, headaches, dysuria or paresthesias at this time. 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 Allergies- denies Objective - Vital Signs/Intake and Output Vital Signs (last 24 hours): Temp Pulse Resp BP Pulse Ox 98.1 F 55 L 18 106/56 L 98 10/14/17 07:00 10/14/17 08:00 10/14/17 07:00 10/14/17 11:32 10/14/17 07:00 Intake and Output: 10/14/17 10/14/17 06:59 18:59 Intake Total 1850 Output Total 375 Balance 1475 - Medications Medications: Current Medications Acetaminophen (Tylenol 650 Mg Supp) 650 mg SD Q4 PRN PRN Reason: Fever >100.4 F Last Admin: 10/14/17 04:12 Dose: 650 mg Amlodipine Besylate (Norvasc) 5 mg PO DAILY [facility] Last Admin: 10/14/17 11:33 Dose: Not Given Aspirin (Aspirin Chewable) 81 mg PO DAILY [facility] Last Admin: 10/14/17 14:05 Dose: 81 mg Calcium/Vitamin D (Oyster Shell Calcium/Vitamin D 500 Mg-200 Iu) 1 tab PO DAILY [facility] Last Admin: 10/14/17 11:39 Dose: 1 tab Enalapril Maleate (Vasotec) 5 mg PO DAILY [facility] Last Admin: 10/14/17 11:32 Dose: Not Given Enoxaparin Sodium (Lovenox) 40 mg SC DAILY [facility] Last Admin: 10/14/17 11:34 Dose: 40 mg Hydromorphone HCl (Dilaudid) 2 mg PO Q8H PRN PRN Reason: Pain, severe (8-10) Last Admin: 10/13/17 22:23 Dose: 2 mg Sodium Chloride (Sodium Chloride 0.9%) 1,000 mls @ 100 mls/hr IV .Q10H [facility] Vancomycin/Sodium Chloride (Vancomycin 1 Gm/Ns 200 Ml) 1 gm in 200 mls @ 133 mls/hr IVPB Q24H [facility] PRN Reason: Protocol Stop: 10/19/17 08:01 Last Admin: 10/14/17 14:02 Dose: Not Given Piperacillin Sod/Tazobactam Sod (Zosyn 3.375 Gm Iv Premix) 3.375 gm in 50 mls @ 200 mls/hr IVPB Q8H [facility] PRN Reason: Protocol Last Admin: 10/14/17 14:05 Dose: 200 mls/hr Azithromycin 500 mg/ Sodium (Chloride) 250 mls @ 250 mls/hr IVPB DAILY [facility] PRN Reason: Protocol Last Admin: 10/14/17 14:44 Dose: 250 mls/hr [id number] Ethyl Esters (Lovaza) 1 gm PO BID [facility] Last Admin: 10/14/17 14:05 Dose: 1 gm Pantoprazole Sodium (Protonix Ec Tab) 40 mg PO DAILY [facility] Last Admin: 10/14/17 11:33 Dose: 40 mg Rosuvastatin Calcium (Crestor) 20 mg PO HS [facility] - Labs Labs: 10/14/17 03:53 10/14/17 03:53 - Constitutional Appears: Non-toxic, No Acute Distress - Head Exam Head Exam: ATRAUMATIC, NORMAL INSPECTION - Eye Exam Eye Exam: EOMI, Normal appearance, PERRL Pupil Exam: NORMAL ACCOMODATION - ENT Exam ENT Exam: Mucous Membranes Moist, Normal Exam - Neck Exam Neck Exam: Full ROM - Respiratory Exam Respiratory Exam: NORMAL BREATHING PATTERN. absent: Wheezes Additional comments: decreased flow of air - Cardiovascular Exam Cardiovascular Exam: +S1, +S2, Murmur. absent: Bradycardia, Tachycardia - GI/Abdominal Exam GI & Abdominal Exam: Soft, Normal Bowel Sounds. absent: Tenderness - Exam Additional comments: orosco cath in place - Extremities Exam Extremities Exam: Normal Capillary Refill, Tenderness. absent: Full ROM Additional comments: dec range of motion in right lower extremity and right upper extremity; tender to touch, right lower extremity warmer and more swollen than left lower extremity; dorsalis pedis pulses strong and intact bilaterally - Back Exam Additional comments: dec ROM - Neurological Exam Neurological Exam: Alert, Awake, CN II-XII Intact, Oriented x3, Reflexes Normal Neuro motor strength exam: Left Upper Extremity: 5, Right Upper Extremity: 4, Left Lower Extremity: 5, Right Lower Extremity: 4 Additional comments: intention tremor noted - more apparent with left upper extremity - Psychiatric Exam Psychiatric exam: Normal Affect, Normal Mood - Skin Skin Exam: Dry, Warm Assessment and Plan (1) Metabolic encephalopathy Assessment & Plan: Fever noted 102.9 around 3AM 10/14- Responded to tylenol Afebrile since CXR shows biapical pleural thickening in the upper lung das- likely chronic- Could be secondary to patient's former profession working in a [employer] Patient worked there for nearly 15 years. F/U Chest CT at this time Patient on Vanc/Zosyn and Azithromycin for broad spectrum (Started 10/14). F/U Vanc trough. F/U ID recommendations On Fluids On Florastor UA- No leukocyte or nitrites notes. F/U UC Neuro on the case- F/U recommendations. Will hold off on MRI at this time in light of patient having had back surgery in the past. F/U repeat Head CT negative for acute changes. F/U AM labs Status: Acute (2) Osteoarthritis Assessment & Plan: Ortho on the case- F/U Recommendations Imaging studies show osteoarthritis. There was questionable tib/fib fracture noted on an earlier study- however follow up XRAY imaging was negative. F/U CT of lower extremity Ultram PRN Encourage ambulation WITH assistance. Out of bed to chair as tolerated F/U Physical therapy recommendations Status: Chronic (3) Fall Assessment & Plan: See aforementioned F/U Physical Therapy recommendations Status: Acute (4) HTN (hypertension) Assessment & Plan: On Norvasc 5 mg here. Enalapril 5 mg PO (Hold Parameters in place) Lotrel- Non formularly Monitor Pressures Status: Chronic (5) Cardiac murmur Assessment & Plan: F/U Echo F/U EKG F/U Cardiology recommendations Status: Chronic (6) Hyperlipidemia Assessment & Plan: F/U Lipid Panel On Crestor 20 mg PO HS and Lovaza 1 gm PO BID Status: Chronic (7) Constipation Assessment & Plan: On Colace Monitor Status: Chronic (8) Prophylactic measure Assessment & Plan: Lovenox 40 mg SC daily GI Prophylaxis Protonix 40 mg PO daily Cont to monitor Status: Acute
--- NOTE | 2017-10-14 16:24 | RAD ---
PROCEDURE: Radiographs of the right tibia and fibula. HISTORY: Fall, pain COMPARISON: None available. TECHNIQUE: Frontal and lateral views obtained. FINDINGS: BONES: There is no acute displaced fracture or bone destruction. Bone alignment is normal. There is diffuse bone demineralization. JOINT SPACES: Unremarkable. OTHER FINDINGS: None. IMPRESSION: No acute displaced fracture.
--- NOTE | 2017-10-14 16:25 | RAD ---
PROCEDURE: Right Ankle Radiographs. HISTORY: fall, pain and swelling COMPARISON: None FINDINGS: BONES: There is no acute displaced fracture or bone destruction. Bone alignment is normal. There is severe diffuse bone demineralization. There is a prominent plantar calcaneal spur. JOINTS: Normal. No osteoarthritis. Ankle mortise maintained. Talar dome intact SOFT TISSUES: Normal. OTHER FINDINGS: None. IMPRESSION: No acute displaced fracture or dislocation
--- NOTE | 2017-10-14 16:58 | CT ---
PROCEDURE: CT scan of the right knee without intravenous contrast INDICATION: TECHNIQUE: Multiple axial images of the right knee were obtained with slice thickness of 2.5 mm. Coronal and sagittal reformatted images were obtained. Iterative reconstruction was used. Radiation dose: Total exam DLP = 402.18 mGy-cm. This CT exam was performed using one or more of the following dose reduction techniques: Automated exposure control, adjustment of the mA and/or kV according to patient size, and/or use of iterative reconstruction technique. COMPARISON: None. FINDINGS: There is severe diffuse bone demineralization. There is no acute displaced fracture or bone destruction. There is severe tricompartmental degenerative osteoarthrosis with loss of lateral compartment joint space, vacuum phenomenon in the lateral compartment, chondrocalcinosis and large marginal osteophytes. There is also tibial spiking. There is a small suprapatellar joint effusion. The periarticular muscles and soft tissues are normal. The prepatellar soft tissues are normal. IMPRESSION: No acute displaced fracture or dislocation. Severe tricompartmental degenerative osteoarthrosis, worse in the lateral compartment with loss of joint space and vacuum phenomenon. Small suprapatellar joint effusion.
--- NOTE | 2017-10-14 17:23 | CP.PCM.CON ---
History of Present Illness - History of Present Illness History of Present Illness: Orthopedic consultation Dr. Blake 87F complains of right knee pain after fall 3 days prior to admission. She also complains of feeling weak. Family at bedside. She is also complaining of mild left knee pain, no complaints of shoulder pain at this time. She has had knee pain and injection of the right knee in the past for her osteoarthritis. She ambulates with walker at baseline. says she was able to walk a [place] distance in the park a week ago. She denies numbness/tingling, bowel or bladder changes. No CP/SOB/dizziness/n/v Review of Systems - Review of Systems All systems: reviewed and no additional remarkable complaints except - Constitutional Additional comments: fever on admit - Cardiovascular Cardiovascular: As Per HPI - Respiratory Respiratory: As Per HPI - Gastrointestinal Gastrointestinal: As Per HPI - Musculoskeletal Musculoskeletal: As Per HPI - Integumentary Additional comments: none - Neurological Neurological: As Per HPI - Hematologic/Lymphatic Hematologic: absent: As Per HPI, Easy Bleeding, Easy Bruising, Lymphadenopathy, Other Past Patient History - Past Medical History & Family History Past Medical History?: Yes Past Family History: Reviewed and not pertinent - Past Social History Smoking Status: Never Smoked - CARDIAC Hx Hypertension: Yes - MUSCULOSKELETAL/RHEUMATOLOGICAL Hx Falls: Yes - PSYCHIATRIC Hx Substance Use: No Meds Allergies/Adverse Reactions: Allergies Allergy/AdvReac Type Severity Reaction Status Date / Time No Known Allergies Allergy Verified 10/13/17 09:15 - Medications Medications: Current Medications Acetaminophen (Tylenol 650 Mg Supp) 650 mg NE Q4 PRN PRN Reason: Fever >100.4 F Last Admin: 10/14/17 04:12 Dose: 650 mg Amlodipine Besylate (Norvasc) 5 mg PO DAILY [facility] Last Admin: 10/14/17 11:33 Dose: Not Given Aspirin (Aspirin Chewable) 81 mg PO DAILY [facility] Last Admin: 10/14/17 14:05 Dose: 81 mg Calcium/Vitamin D (Oyster Shell Calcium/Vitamin D 500 Mg-200 Iu) 1 tab PO DAILY [facility] Last Admin: 10/14/17 11:39 Dose: 1 tab Enalapril Maleate (Vasotec) 5 mg PO DAILY [facility] Last Admin: 10/14/17 11:32 Dose: Not Given Enoxaparin Sodium (Lovenox) 40 mg SC DAILY [facility] Last Admin: 10/14/17 11:34 Dose: 40 mg Hydromorphone HCl (Dilaudid) 2 mg PO Q8H PRN PRN Reason: Pain, severe (8-10) Last Admin: 10/13/17 22:23 Dose: 2 mg Sodium Chloride (Sodium Chloride 0.9%) 1,000 mls @ 100 mls/hr IV .Q10H [facility] Vancomycin/Sodium Chloride (Vancomycin 1 Gm/Ns 200 Ml) 1 gm in 200 mls @ 133 mls/hr IVPB Q24H [facility] PRN Reason: Protocol Stop: 10/19/17 08:01 Last Admin: 10/14/17 14:02 Dose: Not Given Piperacillin Sod/Tazobactam Sod (Zosyn 3.375 Gm Iv Premix) 3.375 gm in 50 mls @ 200 mls/hr IVPB Q8H [facility] PRN Reason: Protocol Last Admin: 10/14/17 14:05 Dose: 200 mls/hr Azithromycin 500 mg/ Sodium (Chloride) 250 mls @ 250 mls/hr IVPB DAILY [facility] PRN Reason: Protocol Last Admin: 10/14/17 14:44 Dose: 250 mls/hr [id number] Ethyl Esters (Lovaza) 1 gm PO BID [facility] Last Admin: 10/14/17 14:05 Dose: 1 gm Pantoprazole Sodium (Protonix Ec Tab) 40 mg PO DAILY [facility] Last Admin: 10/14/17 11:33 Dose: 40 mg Rosuvastatin Calcium (Crestor) 20 mg PO [facility] Physical Exam - Constitutional Appears: Well, No Acute Distress - Head Exam Head Exam: ATRAUMATIC - Neck Exam Neck exam: Positive for: Full Rom - Respiratory Exam Respiratory Exam: NORMAL BREATHING PATTERN - Cardiovascular Exam Additional comments: +DP/PT pulses BLE - Extremities Exam Additional comments: Right knee: generalized tenderness to entire knee ROM 0-40 degrees then complains of pain, c/o pain with varus/valgus stress, no laxity, neg garo sensation intact and equal BLE Left knee: no effusion, minimal tenderness no erythema, neg varus/valgusstress, neg garo Right ankle:full ROM, mild swelling to med/lat ankle, tender to same, no erythema - Expanded Lower Extremities Exam Right Knee exam: effusion (mild to mod, no erythema, calves soft NT neg homans no edema) Lower Leg Exam: normal inspection Ankle exam: FULL ROM, swelling, tenderness - Neurological Exam Neurological exam: Alert - Expanded Neurological Exam Expanded Sensory exam: Lower Extremity Light Touch: Normal Neuro motor strength exam: Left Lower Extremity: 5, Right Lower Extremity: 5 (5/ 5 great toe extension, DF, 4/5 PF compared to left) - Psychiatric Exam Psychiatric exam: Normal Affect, Normal Mood - Skin Skin Exam: Dry, Intact, Normal Color, Warm Results - Vital Signs Recent Vital Signs: Last Vital Signs Temp 98.1 F 10/14/17 07:00 Pulse 55 L 10/14/17 08:00 Resp 18 10/14/17 07:00 BP 106/56 L 10/14/17 11:32 Pulse Ox 98 10/14/17 07:00 - Labs Result Diagrams: 10/15/17 07:56 10/15/17 07:56 Labs: Laboratory Results - last 24 hr 10/14/17 10/14/17 10/14/17 03:35 03:53 03:53 WBC 8.9 RBC 3.48 L Hgb 10.6 L Hct 31.1 L MCV 89.4 MCH 30.3 MCHC 33.9 RDW 13.2 Plt Count 132 MPV 8.2 Neut % (Auto) 71.3 Lymph % (Auto) 13.0 L Hudspeth % (Auto) 15.2 H Eos % (Auto) 0.1 Baso % (Auto) 0.4 Neut # (Auto) 6.4 Lymph # (Auto) 1.2 [place]eth # (Auto) 1.4 H Eos # (Auto) 0.0 Baso # (Auto) 0.0 pO2 40 VBG pH 7.44 H VBG pCO2 36 L VBG HCO3 24.9 VBG Total CO2 25.6 VBG O2 Sat (Calc) 84.6 H VBG Base Excess 0.6 VBG Potassium 3.9 Sodium 133.0 136 Chloride 101.0 98 Glucose 149 H Lactate 0.9 Potassium 4.2 Carbon Dioxide 25 Anion Gap 17 BUN 20 H Creatinine 1.0 Est GFR ( Amer) > 60 Est GFR (Non-Af Amer) 52 Random Glucose 148 H Lactic Acid Calcium 8.6 Total Bilirubin 1.0 AST 37 H ALT 42 Alkaline Phosphatase 63 Total Protein 6.7 Albumin 3.4 L Globulin 3.3 Albumin/Globulin Ratio 1.0 Venous Blood Potassium 3.9 Urine Color Urine Clarity Urine pH Ur Specific [place] Urine Protein Urine Glucose (UA) Urine Ketones Urine Blood Urine Nitrate Urine Bilirubin Urine Urobilinogen Ur Leukocyte Esterase Urine WBC (Auto) Urine RBC (Auto) 10/14/17 10/14/17 03:54 13:40 WBC RBC Hgb Hct MCV MCH MCHC RDW Plt Count MPV Neut % (Auto) Lymph % (Auto) Hudspeth % (Auto) Eos % (Auto) Baso % (Auto) Neut # (Auto) Lymph # (Auto) [place] # (Auto) Eos # (Auto) Baso # (Auto) pO2 VBG pH VBG pCO2 VBG HCO3 VBG Total CO2 VBG O2 Sat (Calc) VBG Base Excess VBG Potassium Sodium Chloride Glucose Lactate Potassium Carbon Dioxide Anion Gap BUN Creatinine Est GFR ( Amer) Est GFR (Non-Af Amer) Random Glucose Lactic Acid 1.1 Calcium Total Bilirubin AST ALT Alkaline Phosphatase Total Protein Albumin Globulin Albumin/Globulin Ratio Venous Blood Potassium Urine Color Yellow Urine Clarity Hazy Urine pH 7.0 Ur Specific [place] 1.013 Urine Protein 2+ H Urine Glucose (UA) Normal Urine Ketones Negative Urine Blood 2+ H Urine Nitrate Negative Urine Bilirubin Negative Urine Urobilinogen Normal Ur Leukocyte Esterase Neg Urine WBC (Auto) 2 Urine RBC (Auto) 19 H - Impressions Impression: Creator : Bethanie Wright MD Dictator : Bethanie Wright MD Inventory Controller : Property Coordinator : Bethanie Wright MD Approver2 : Report Date : 10/14/2017 16:18:31 My Comment : PROCEDURE: Right Ankle Radiographs. HISTORY: fall, pain and swelling COMPARISON: None FINDINGS: BONES: There is no acute displaced fracture or bone destruction. Bone alignment is normal. There is severe diffuse bone demineralization. There is a prominent plantar calcaneal spur. JOINTS: Normal. No osteoarthritis. Ankle mortise maintained. Talar dome intact SOFT TISSUES: Normal. OTHER FINDINGS: None. IMPRESSION: No acute displaced fracture or dislocation Name / ID : BE FRANCISCO / [id number] Exam Date : 10/14/2017 16:17:13 ( Approved ) Study Comment : Sex / Age : F / 87Y Creator : Federica Walters Dictator : Bethanie Wright MD Inventory Controller : Property Coordinator : Bethanie Wright MD Approver2 : Report Date : 10/14/2017 16:45:45 My Comment : PROCEDURE: CT scan of the right knee without intravenous contrast INDICATION: TECHNIQUE: Multiple axial images of the right knee were obtained with slice thickness of 2.5 mm. Coronal and sagittal reformatted images were obtained. Iterative reconstruction was used. Radiation dose: Total exam DLP = 402.18 mGy-cm. This CT exam was performed using one or more of the following dose reduction techniques: Automated exposure control, adjustment of the mA and/or kV according to patient size, and/or use of iterative reconstruction technique. COMPARISON: None. FINDINGS: There is severe diffuse bone demineralization. There is no acute displaced fracture or bone destruction. There is severe tricompartmental degenerative osteoarthrosis with loss of lateral compartment joint space, vacuum phenomenon in the lateral compartment, chondrocalcinosis and large marginal osteophytes. There is also tibial spiking. There is a small suprapatellar joint effusion. The periarticular muscles and soft tissues are normal. The prepatellar soft tissues are normal. IMPRESSION: No acute displaced fracture or dislocation. Severe tricompartmental degenerative osteoarthrosis, worse in the lateral compartment with loss of joint space and vacuum phenomenon. Small suprapatellar joint effusion. atient Name / ID : BE FRANCISCO / [id number] Exam Date : 10/13/2017 13:01:38 ( Approved ) Study Comment : Sex / Age : F / 8Y Creator : Kulwinder Hubbard MD Dictator : Kulwinder Hubbard MD Inventory Controller : Property Coordinator : Kulwinder Hubbard MD Approver2 : Report Date : 10/13/2017 15:03:11 My Comment : PROCEDURE: Right Knee Radiographs. HISTORY: pain to right knee also, S/P fall COMPARISON: None. FINDINGS: BONES: Questionable nondisplaced medial tibial plateau fracture. JOINTS: Tricompartmental narrowing with severe degenerative spurring, worst in the medial tibial femoral compartment. JOINT EFFUSION: Moderate. OTHER FINDINGS: None. IMPRESSION: Questionable nondisplaced medial tibial plateau fracture. Severe arthritic changes as described above. ccession No. : [id number] Patient Name / ID : BE FRANCISCO / [id number] Exam Date : 10/13/2017 09:34:55 ( Approved ) Study Comment : Sex / Age : F / 87Y Creator : Beto Rush MD Dictator : Beto Rush MD Inventory Controller : Property Coordinator : Beto Rush MD Approver2 : Report Date : 10/13/2017 13:12:26 My Comment : PROCEDURE: Left Knee Radiographs. HISTORY: Pain. COMPARISON: None. FINDINGS: BONES: No acute fracture or destructive bony lesion identified. JOINTS: No subluxation or dislocation is appreciate however there is gross lateral joint compartment space narrowing as well as the patellofemoral articulation with prominent articular cortical sclerosis and marginal osteophyte development have advanced osteoarthritis. Moderate similar changes affect the medial femorotibial compartment and there is a degenerative valgus deformity appreciated as well. A mild suprapatellar bursa effusion is evident and medial knee soft tissues appears somewhat edematous. JOINT EFFUSION: As above. OTHER FINDINGS: None. IMPRESSION: Advanced osteoarthritis as discussed above with related valgus deformity appearing mild. No acute fracture, subluxation or dislocation. Medial extracapsular soft tissue edema is suggested. MRI can be utilized for additional detail elevation if warranted. Accession No. : [id number] Patient Name / ID : BE FRANCISCO / [id number] Exam Date : 10/13/2017 09:35:23 ( Approved ) Study Comment : Sex / Age : F / 87Y Creator : Beto Rush MD Dictator : Beto Rush MD Inventory Controller : Property Coordinator : Beto Rush MD Approver2 : Report Date : 10/13/2017 13:17:28 My Comment : PROCEDURE: Radiographs of the Left Shoulder HISTORY: trauma COMPARISON: No prior. FINDINGS: BONES: No acute fracture or destructive bony lesion identified. These osteopenia suggests osteoporosis. JOINTS: Advanced joint space narrowing, cortical sclerosis and marginal osteophyte development at the clinic humeral joint is compatible with osteoarthritis with lesser degenerative changes insert present at the acromioclavicular joint. SOFT TISSUES: Calcific changes superior to the region of the greater tuberosity of the proximal left humerus suggest calcific tendinosis. OTHER FINDINGS: None. IMPRESSION: No acute fracture, subluxation or dislocation evident. Advanced osteoarthritis is appreciate the glenohumeral joint and appears moderate at the acromioclavicular joint with calcific tendinosis suggested in local left shoulder soft tissues. Patient Name / ID : BE FRANCISCO / [id number] Exam Date : 10/14/2017 15:48:19 ( Approved ) Study Comment : Sex / Age : F / 87Y Creator : Bethanie Wright MD Dictator : Bethanie Wright MD Inventory Controller : Property Coordinator : Bethanie Wright MD Approver2 : Report Date : 10/14/2017 16:17:59 My Comment : PROCEDURE: Radiographs of the right tibia and fibula. HISTORY: Fall, pain COMPARISON: None available. TECHNIQUE: Frontal and lateral views obtained. FINDINGS: BONES: There is no acute displaced fracture or bone destruction. Bone alignment is normal. There is diffuse bone demineralization. JOINT SPACES: Unremarkable. OTHER FINDINGS: None. IMPRESSION: No acute displaced fracture. Assessment & Plan (1) Primary osteoarthritis of right knee Assessment and Plan: CT confirms no acute fracture severe tricompartmental DJD with osteophytosis likely synovitis/exacerbation from fall awaiting review Dr. Blake and will determine WB VTE proph Status: Acute (2) Primary osteoarthritis of left knee Assessment and Plan: severe tricompartmental DJD no acute fracture Status: Acute (3) Right ankle pain Assessment and Plan: no fracture appreciated Status: Acute
--- NOTE | 2017-10-14 18:10 | CARD ---
APPROVED REPORT EXAM: Two-dimensional and M-mode echocardiogram with Doppler and color Doppler. Other Information Quality : GoodRhythm : INDICATION Pre-Op 2D DIMENSIONS IVSd1.1 (0.7-1.1cm)LVDd4.8 (3.9-5.9cm) PWd1.0 (0.7-1.1cm)LVDs3.0 (2.5-4.0cm) FS (%) 38.7 %LVEF (%)69.0 (>50%) M-Mode DIMENSIONS Left Atrium (MM)3.15 (2.5-4.0cm)Aortic Root4.28 (2.2-3.7cm) Aortic Cusp Exc.2.34 (1.5-2.0cm) Mitral Valve MV E Emlyvpgo90.7cm/sMV A Pbvkbtdc57.3cm/sE/A ratio1.0 TDI E/Lateral E'0.0E/Medial E'0.0 Tricuspid Valve TR Peak Wsdnslkv396if/sTR Peak Gr.36mmHg LEFT VENTRICLE The left ventricle is normal size. There is normal left ventricular wall thickness. The left ventricular function is normal. The left ventricular ejection fraction is within the normal range. There is normal LV segmental wall motion. Transmitral Doppler flow pattern is abnormal. RIGHT VENTRICLE The right ventricle is normal size. ATRIA The left atrium size is normal. The right atrium size is normal. AORTIC VALVE The aortic valve is normal in structure. MITRAL VALVE The mitral valve is normal in structure. TRICUSPID VALVE The tricuspid valve is normal in structure. GREAT VESSELS The aortic root is mildly enlarged. <Conclusion> Normal LV systolic function. Diastolic dysfunction. Normal chamber size. Midly dilated Aortic root.
--- NOTE | 2017-10-14 18:23 | CARD ---
APPROVED REPORT EKG Measurement Heart [id number] [place] [id number] <Conclusion> Sinus rhythm with 1st degree AV block Otherwise normal ECG
--- NOTE | 2017-10-14 18:50 | CP.PCM.PN ---
Subjective - Date & Time of Evaluation Date of Evaluation: 10/14/17 Time of Evaluation: 11:00 - Subjective Subjective: clinically same Objective - Vital Signs/Intake and Output Vital Signs (last 24 hours): Temp Pulse Resp BP Pulse Ox 97.8 F 67 20 95/54 L 99 10/14/17 16:00 10/14/17 16:00 10/14/17 16:00 10/14/17 16:00 10/14/17 16:00 Intake and Output: 10/14/17 10/14/17 06:59 18:59 Intake Total 1850 Output Total 375 Balance 1475 - Medications Medications: Current Medications Acetaminophen (Tylenol 650 Mg Supp) 650 mg IA Q4 PRN PRN Reason: Fever >100.4 F Last Admin: 10/14/17 04:12 Dose: 650 mg Amlodipine Besylate (Norvasc) 5 mg PO DAILY [facility] Aspirin (Aspirin Chewable) 81 mg PO DAILY [facility] Last Admin: 10/14/17 14:05 Dose: 81 mg Calcium/Vitamin D (Oyster Shell Calcium/Vitamin D 500 Mg-200 Iu) 1 tab PO DAILY [facility] Last Admin: 10/14/17 11:39 Dose: 1 tab Docusate Sodium (Colace) 100 mg PO DAILY [facility] Enalapril Maleate (Vasotec) 5 mg PO DAILY [facility] Last Admin: 10/14/17 11:32 Dose: Not Given Enoxaparin Sodium (Lovenox) 40 mg SC DAILY [facility] Last Admin: 10/14/17 11:34 Dose: 40 mg Sodium Chloride (Sodium Chloride 0.9%) 1,000 mls @ 100 mls/hr IV .Q10H [facility] Vancomycin/Sodium Chloride (Vancomycin 1 Gm/Ns 200 Ml) 1 gm in 200 mls @ 133 mls/hr IVPB Q24H [facility] PRN Reason: Protocol Stop: 10/19/17 08:01 Last Admin: 10/14/17 14:02 Dose: Not Given Piperacillin Sod/Tazobactam Sod (Zosyn 3.375 Gm Iv Premix) 3.375 gm in 50 mls @ 200 mls/hr IVPB Q8H [facility] PRN Reason: Protocol Last Admin: 10/14/17 14:05 Dose: 200 mls/hr Azithromycin 500 mg/ Sodium (Chloride) 250 mls @ 250 mls/hr IVPB DAILY [facility] PRN Reason: Protocol Last Admin: 10/14/17 14:44 Dose: 250 mls/hr Rptyp-5-Ssvu Ethyl Esters (Lovaza) 1 gm PO BID [facility] Last Admin: 10/14/17 17:36 Dose: 1 gm Pantoprazole Sodium (Protonix Ec Tab) 40 mg PO DAILY [facility] Last Admin: 10/14/17 11:33 Dose: 40 mg Rosuvastatin Calcium (Crestor) 20 mg PO HS [facility] Saccharomyces Boulardii (Florastor) 250 mg PO BID [facility] Tramadol HCl (Ultram) 25 mg PO TID PRN PRN Reason: Pain, moderate (4-7) - Labs Labs: 10/14/17 03:53 10/14/17 03:53 - Constitutional Appears: Well - Head Exam Head Exam: ATRAUMATIC, NORMAL INSPECTION, NORMOCEPHALIC - Eye Exam Eye Exam: EOMI, Normal appearance, PERRL Pupil Exam: NORMAL ACCOMODATION, PERRL - ENT Exam ENT Exam: Mucous Membranes Moist, Normal Exam - Neck Exam Neck Exam: Full ROM, Normal Inspection. absent: Lymphadenopathy - Respiratory Exam Respiratory Exam: Decreased Breath Sounds - Cardiovascular Exam Cardiovascular Exam: REGULAR RHYTHM, +S1, +S2 - GI/Abdominal Exam GI & Abdominal Exam: Soft, Diminished Bowel Sounds - Rectal Exam Rectal Exam: Deferred
[2017-10-14] MEDS ORDERED: Iodixanol 320 MG/ML 100 ML BOTTLE IV ONE (19:21)
[2017-10-14] MEDS: Saccharomyces Boulardi 250 mg Cap PO SCH (21:14)
[2017-10-14] MEDS: Sodium Chloride 0.9% 1,000 ML IV SCH (21:17)
--- NOTE | 2017-10-15 00:11 | CON ---
DATE: REASON FOR CONSULTATION: Preoperative evaluation and recent fall. The history was obtained from the patient's son who was at the bedside. HISTORY OF PRESENT ILLNESS: The patient is an 87-year-old [place] female who has history of hypertension and no known prior cardiac history. She presents because of a fall on Saturday morning, and according to son, she was trying to fix her bed. She lost balance and fell and sustained right knee pain. Since then, the patient is not able to stand on her own. The patient according to son, sustained a fall in June by similar scenario. There was no reported dizziness or syncope. The patient denies any history of chest pain or heart attack in the past. No history of smoking in the past. SOCIAL HISTORY: Nonsmoker, nondrinker. She lives with her son and her [id number]-on-bop. MEDICATIONS: Aspirin 81 mg once a day, Zithromax 500 mg intravenously daily, Crestor 20 mg once a day, Dilaudid 2 mg p.o. every 8 hours p.r.n., Lovenox 40 mg subcutaneous once a day, Protonix 40 mg p.o. once a day, vancomycin 1 gm intravenously daily, and Zosyn 3.375 gm intravenously every 8 hours. REVIEW OF SYSTEMS: The patient was reported to have fever since admission. No productive cough. No syncope. No history of palpitation. PHYSICAL EXAMINATION: GENERAL: The patient is an elderly female who does not appear to be in acute distress. 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 HEENT: [place] conjunctivae. CHEST: Clear. HEART: S1 and S2 regular. ABDOMEN: Soft. EXTREMITIES: Bilateral knee swelling with right knee tenderness and trace leg edema. LABORATORIES: SMA-7: Sodium 136, potassium 4.2, chloride 98, CO2 25, glucose 148, BUN 20, creatinine 1. Hemoglobin and hematocrit 10.6 and 31.1. White count and platelet counts are within normal limits. EKG with normal sinus rhythm with first-degree AV block. Thoracic spine x-ray: Normal radiograph of the thoracic spine. Head CT scan without contrast: Mild cerebellar atrophy with scattered focal , and chronic microvascular ischemic changes. Knee x-ray: Right knee x-ray revealed questionable nondisplaced medial tibial plateau fracture, severe arthritic changes. Rib x-ray: No fractures in the left rib. Shoulder x-ray: No acute fracture, subluxation, or dislocation evident. Lumbar and cervical spine x-rays were done, the reports are still pending. ASSESSMENT: 1. Status post fall with questionable right tibial fracture. 2. Hypertension. 3. Fever, rule out underlying sepsis. RECOMMENDATIONS: Continue current aspirin 81 mg once a day. Continue IV Zithromax and IV vancomycin. Continue IV Zosyn at 3.375 gm every 8 hours. Continue Norvasc 5 mg once a day, subcutaneous Lovenox at 40 mg once a day, Crestor 20 mg once a day. We will follow with the echocardiographic study that was performed today. Rasheed Galdamez MD
[2017-10-15] MEDS: Sodium Chloride 0.9% 1,000 ML IV SCH (03:45)
[2017-10-15] MEDS: Tramadol 25 mg PO PRN ×2 (04:05→17:29)
[2017-10-15] MEDS: Piperacill/Tazo 3.375gm in Dex 3.375 GM/50 ML BAG IVPB SCH ×3 (04:33→21:38)
[2017-10-15 08:04] LABS: BASO % 0.3 % (0.0-2.0); EOS % 0.3 % (0.0-4.0); HEMOGLOBIN 10.2 g/dL (11.0-16.0); LYMPH # 0.5 K/uL (1.0-4.3); LYMPH % 6.3 % (20.0-40.0); MEAN CELL VOLUME 89.4 fL (81.0-99.0); MEAN CORPUSCULAR HEMOGLOBIN 30.3 pg (27.0-31.0); MEAN CORPUSCULAR HGB CONC 33.9 g/dL (33.0-37.0); MEAN PLATELET VOLUME 8.6 fL (7.2-11.7); MONO # 0.9 K/uL (0.0-0.8); MONO % 12.1 % (0.0-10.0); PLATELET COUNT 143 K/uL (130-400); RBC 3.37 Mil/uL (3.80-5.20); RED CELL DISTRIBUTION WIDTH 13.4 % (11.5-14.5); WHITE BLOOD COUNT 7.4 K/uL (4.8-10.8)
[2017-10-15 08:33] LABS: LDL CHOLESTEROL 93 mg/dL (0-129)
[2017-10-15 08:35] LABS: ALB/GLOB RATIO 0.9 (1.0-2.1); ALBUMIN 3.1 g/dL (3.5-5.0); ALT/SGPT 43 U/L (9-52); AST/SGOT 49 U/L (14-36); BLOOD UREA NITROGEN 16 mg/dL (7-17); CALCIUM 7.9 mg/dl (8.6-10.4); GFR AFRICAN-AMERICAN > 60; GFR NON-AFRICAN AMERICAN > 60; HDL CHOLESTEROL 33 mg/dL (30-70); URIC ACID 3.3 mg/dL (2.2-7.5)
[2017-10-15 09:09] LABS: ANISOCYTOSIS SLIGHT; EOSINOPHIL 1 % (0-4); HYPOCHROMIC SLIGHT; LYMPHOCYTE 5 % (20-40); MONOCYTE 13 % (0-10); NEUTROPHIL 81 % (50-75); PLATELET ESTIMATE NORMAL (NORMAL); POIKILOCYTOSIS SLIGHT; TARGET CELLS SLIGHT; TOTAL CELLS COUNTED 100
--- NOTE | 2017-10-15 09:33 | CP.PCM.PN ---
Subjective - Date & Time of Evaluation Date of Evaluation: 10/15/17 Time of Evaluation: 09:29 - Subjective Subjective: Patient still complaining of right knee and ankle pain. Denies numbness/tingling , change in bowel or bladder, denies CP/sob/dizziness/n/v Review of Systems - Review of Systems All systems: reviewed and no additional remarkable complaints except - Cardiovascular Cardiovascular: As Per HPI - Respiratory Respiratory: As Per HPI - Gastrointestinal Gastrointestinal: As Per HPI - Musculoskeletal Musculoskeletal: As Par HPI - Integumentary Integumentary: UNREMARKABLE - Neurological Neurological: As Per HPI - Hematologic/Lymphatic Hematologic: UNREMARKABLE Objective - Vital Signs/Intake and Output Vital Signs (last 24 hours): Temp Pulse Resp BP Pulse Ox 97.2 F L 83 20 151/72 H 96 10/15/17 07:15 10/15/17 07:15 10/15/17 07:15 10/15/17 07:15 10/15/17 07:15 Intake and Output: 10/15/17 10/15/17 06:59 18:59 Intake Total 1000 Balance 1000 - Medications Medications: Current Medications Acetaminophen (Tylenol 650 Mg Supp) 650 mg RI Q4 PRN PRN Reason: Fever >100.4 F Last Admin: 10/14/17 04:12 Dose: 650 mg Amlodipine Besylate (Norvasc) 5 mg PO DAILY [facility] Aspirin (Aspirin Chewable) 81 mg PO DAILY [facility] Last Admin: 10/14/17 14:05 Dose: 81 mg Calcium/Vitamin D (Oyster Shell Calcium/Vitamin D 500 Mg-200 Iu) 1 tab PO DAILY [facility] Last Admin: 10/14/17 11:39 Dose: 1 tab Docusate Sodium (Colace) 100 mg PO DAILY [facility] Last Admin: 10/14/17 21:13 Dose: 100 mg Enalapril Maleate (Vasotec) 5 mg PO DAILY [facility] Last Admin: 10/14/17 11:32 Dose: Not Given Enoxaparin Sodium (Lovenox) 40 mg SC DAILY [facility] Last Admin: 10/14/17 11:34 Dose: 40 mg Sodium Chloride (Sodium Chloride 0.9%) 1,000 mls @ 100 mls/hr IV .Q10H [facility] Last Admin: 10/15/17 03:45 Dose: Not Given Vancomycin/Sodium Chloride (Vancomycin 1 Gm/Ns 200 Ml) 1 gm in 200 mls @ 133 mls/hr IVPB Q24H [facility] PRN Reason: Protocol Stop: 10/19/17 08:01 Last Admin: 10/14/17 14:02 Dose: Not Given Piperacillin Sod/Tazobactam Sod (Zosyn 3.375 Gm Iv Premix) 3.375 gm in 50 mls @ 200 mls/hr IVPB Q8H [facility] PRN Reason: Protocol Last Admin: 10/15/17 04:33 Dose: 200 mls/hr Azithromycin 500 mg/ Sodium (Chloride) 250 mls @ 250 mls/hr IVPB DAILY [facility] PRN Reason: Protocol Last Admin: 10/14/17 14:44 Dose: 250 mls/hr Hzhgh-4-Lrke Ethyl Esters (Lovaza) 1 gm PO BID [facility] Last Admin: 10/14/17 17:36 Dose: 1 gm Pantoprazole Sodium (Protonix Ec Tab) 40 mg PO DAILY [facility] Last Admin: 10/14/17 11:33 Dose: 40 mg Rosuvastatin Calcium (Crestor) 20 mg PO HS [facility] Last Admin: 10/14/17 21:13 Dose: 20 mg Saccharomyces Boulardii (Florastor) 250 mg PO BID [facility] Last Admin: 10/14/17 21:14 Dose: 250 mg Tramadol HCl (Ultram) 25 mg PO TID PRN PRN Reason: Pain, moderate (4-7) Last Admin: 10/15/17 04:05 Dose: 25 mg - Labs Labs: 10/15/17 07:56 10/15/17 07:56 - Constitutional Appears: Well, No Acute Distress - Head Exam Head Exam: ATRAUMATIC - Neck Exam Neck Exam: Full ROM - Respiratory Exam Respiratory Exam: NORMAL BREATHING PATTERN - Cardiovascular Exam Additional comments: +dp/pt pulses - Extremities Exam Additional comments: right knee: no erythema, exam essentially unchanged, +ROM ankle/toes, sensation intact, knee ROM 0-40, no increase in joint effusion left kneeROM slightly improved, sensation intact, 5/5 strength great toe/DF/PF Assessment and Plan (1) Primary osteoarthritis of right knee Assessment & Plan: No fracture on CT knee immobilizer, brace pending PT/OT WBAT VTE proph orthopedically stable d/w Dr. Blake, agrees with above Status: Acute (2) Primary osteoarthritis of left knee Status: Acute (3) Right ankle pain Assessment & Plan: sprain, no fx on xray Status: Acute
[2017-10-15] MEDS ORDERED: Iodixanol 320 MG/ML 100 ML BOTTLE IV ONE (10:00)
[2017-10-15] MEDS: Omega-3-Acid Ethyl Esters 1 GM Cap PO SCH ×2 (10:46→17:23)
[2017-10-15] MEDS: Pantoprazole 40 mg EC Tab PO SCH (10:46)
[2017-10-15] MEDS: Saccharomyces Boulardi 250 mg Cap PO SCH ×2 (10:46→17:23)
[2017-10-15] MEDS: Calcium-Vit D 500 mg-200 Units Tab UD PO SCH (10:46)
[2017-10-15] MEDS: Azithromycin 500 MG in Sodium Chloride 0.9% 250 ML IVPB SCH (10:46)
[2017-10-15] MEDS: Enoxaparin 40 mg Syringe SC SCH (10:51)
--- NOTE | 2017-10-15 13:19 | CP.PCM.PN ---
Subjective - Date & Time of Evaluation Date of Evaluation: 10/15/17 Time of Evaluation: 11:00 - Subjective Subjective: clinically same Objective - Vital Signs/Intake and Output Vital Signs (last 24 hours): Temp Pulse Resp BP Pulse Ox 97.2 F L 83 20 123/60 96 10/15/17 07:15 10/15/17 07:15 10/15/17 07:15 10/15/17 10:46 10/15/17 07:15 Intake and Output: 10/15/17 10/15/17 06:59 18:59 Intake Total 1000 Balance 1000 - Medications Medications: Current Medications Acetaminophen (Tylenol 650 Mg Supp) 650 mg MN Q4 PRN PRN Reason: Fever >100.4 F Last Admin: 10/14/17 04:12 Dose: 650 mg Amlodipine Besylate (Norvasc) 5 mg PO DAILY [facility] Last Admin: 10/15/17 10:47 Dose: 5 mg Aspirin (Aspirin Chewable) 81 mg PO DAILY [facility] Last Admin: 10/15/17 10:46 Dose: 81 mg Calcium/Vitamin D (Oyster Shell Calcium/Vitamin D 500 Mg-200 Iu) 1 tab PO DAILY [facility] Last Admin: 10/15/17 10:46 Dose: 1 tab Docusate Sodium (Colace) 100 mg PO DAILY [facility] Last Admin: 10/15/17 10:47 Dose: 100 mg Enalapril Maleate (Vasotec) 5 mg PO DAILY [facility] Last Admin: 10/15/17 10:46 Dose: 5 mg Enoxaparin Sodium (Lovenox) 40 mg SC DAILY [facility] Last Admin: 10/15/17 10:51 Dose: 40 mg Vancomycin/Sodium Chloride (Vancomycin 1 Gm/Ns 200 Ml) 1 gm in 200 mls @ 133 mls/hr IVPB Q24H [facility] PRN Reason: Protocol Stop: 10/19/17 08:01 Last Admin: 10/14/17 14:02 Dose: Not Given Piperacillin Sod/Tazobactam Sod (Zosyn 3.375 Gm Iv Premix) 3.375 gm in 50 mls @ 200 mls/hr IVPB Q8H [facility] PRN Reason: Protocol Last Admin: 10/15/17 04:33 Dose: 200 mls/hr Azithromycin 500 mg/ Sodium (Chloride) 250 mls @ 250 mls/hr IVPB DAILY [facility] PRN Reason: Protocol Last Admin: 10/15/17 10:46 Dose: 250 mls/hr Wxihb-7-Lzgm Ethyl Esters (Lovaza) 1 gm PO BID [facility] Last Admin: 10/15/17 10:46 Dose: 1 gm Pantoprazole Sodium (Protonix Ec Tab) 40 mg PO DAILY [facility] Last Admin: 10/15/17 10:46 Dose: 40 mg Rosuvastatin Calcium (Crestor) 20 mg PO HS [facility] Last Admin: 10/14/17 21:13 Dose: 20 mg Saccharomyces Boulardii (Florastor) 250 mg PO BID [facility] Last Admin: 10/15/17 10:46 Dose: 250 mg Tramadol HCl (Ultram) 25 mg PO TID PRN PRN Reason: Pain, moderate (4-7) Last Admin: 10/15/17 04:05 Dose: 25 mg - Labs Labs: 10/15/17 07:56 10/15/17 07:56 - Constitutional Appears: Well - Head Exam Head Exam: ATRAUMATIC, NORMAL INSPECTION, NORMOCEPHALIC - Eye Exam Eye Exam: EOMI, Normal appearance, PERRL Pupil Exam: NORMAL ACCOMODATION, PERRL - ENT Exam ENT Exam: Mucous Membranes Moist, Normal Exam - Neck Exam Neck Exam: Full ROM, Normal Inspection. absent: Lymphadenopathy - Respiratory Exam Respiratory Exam: Decreased Breath Sounds - Cardiovascular Exam Cardiovascular Exam: REGULAR RHYTHM, +S1, +S2 - GI/Abdominal Exam GI & Abdominal Exam: Soft, Diminished Bowel Sounds - Rectal Exam Rectal Exam: Deferred
--- NOTE | 2017-10-15 13:20 | CP.PCM.PN ---
<Marcelle Blevins - Last Filed: 10/15/17 13:17> Subjective - Date & Time of Evaluation Date of Evaluation: 10/15/17 Time of Evaluation: 07:00 - Subjective Subjective: PGY1- Medicine Note Patient seen and examined at bedside and in no acute distress. Patient's daughter at bedside helped illicit ROS from patient. Patient is still confused and speaking tangentially as per daughter. Patient knows she is in a hospital, but says it is August, and does not know who the president is. Patient says her pain is much improved. Patient still has right knee pain and rates it 2/10. Patient denies shortness of breath, chest pain, abdominal pain, nausea, vomiting , constipation, or diarrhea. Objective - Vital Signs/Intake and Output Vital Signs (last 24 hours): Temp Pulse Resp BP Pulse Ox 97.2 F L 83 20 123/60 96 10/15/17 07:15 10/15/17 07:15 10/15/17 07:15 10/15/17 10:46 10/15/17 07:15 Intake and Output: 10/15/17 10/15/17 06:59 18:59 Intake Total 1000 Balance 1000 - Medications Medications: Current Medications Acetaminophen (Tylenol 650 Mg Supp) 650 mg MO Q4 PRN PRN Reason: Fever >100.4 F Last Admin: 10/14/17 04:12 Dose: 650 mg Amlodipine Besylate (Norvasc) 5 mg PO DAILY [facility] Last Admin: 10/15/17 10:47 Dose: 5 mg Aspirin (Aspirin Chewable) 81 mg PO DAILY [facility] Last Admin: 10/15/17 10:46 Dose: 81 mg Calcium/Vitamin D (Oyster Shell Calcium/Vitamin D 500 Mg-200 Iu) 1 tab PO DAILY [facility] Last Admin: 10/15/17 10:46 Dose: 1 tab Docusate Sodium (Colace) 100 mg PO DAILY [facility] Last Admin: 10/15/17 10:47 Dose: 100 mg Enalapril Maleate (Vasotec) 5 mg PO DAILY [facility] Last Admin: 10/15/17 10:46 Dose: 5 mg Enoxaparin Sodium (Lovenox) 40 mg SC DAILY [facility] Last Admin: 10/15/17 10:51 Dose: 40 mg Vancomycin/Sodium Chloride (Vancomycin 1 Gm/Ns 200 Ml) 1 gm in 200 mls @ 133 mls/hr IVPB Q24H [facility] PRN Reason: Protocol Stop: 10/19/17 08:01 Last Admin: 10/14/17 14:02 Dose: Not Given Piperacillin Sod/Tazobactam Sod (Zosyn 3.375 Gm Iv Premix) 3.375 gm in 50 mls @ 200 mls/hr IVPB Q8H [facility] PRN Reason: Protocol Last Admin: 10/15/17 04:33 Dose: 200 mls/hr Azithromycin 500 mg/ Sodium (Chloride) 250 mls @ 250 mls/hr IVPB DAILY [facility] PRN Reason: Protocol Last Admin: 10/15/17 10:46 Dose: 250 mls/hr Sonvl-9-Udkc Ethyl Esters (Lovaza) 1 gm PO BID [facility] Last Admin: 10/15/17 10:46 Dose: 1 gm Pantoprazole Sodium (Protonix Ec Tab) 40 mg PO DAILY [facility] Last Admin: 10/15/17 10:46 Dose: 40 mg Rosuvastatin Calcium (Crestor) 20 mg PO HS [facility] Last Admin: 10/14/17 21:13 Dose: 20 mg Saccharomyces Boulardii (Florastor) 250 mg PO BID [facility] Last Admin: 10/15/17 10:46 Dose: 250 mg Tramadol HCl (Ultram) 25 mg PO TID PRN PRN Reason: Pain, moderate (4-7) Last Admin: 10/15/17 04:05 Dose: 25 mg - Labs Labs: 10/15/17 07:56 10/15/17 07:56 - Additional Findings Additional findings: - Constitutional Appears: Non-toxic, No Acute Distress - Head Exam Head Exam: ATRAUMATIC, NORMAL INSPECTION - Eye Exam Eye Exam: EOMI, Normal appearance, PERRL Pupil Exam: NORMAL ACCOMODATION - ENT Exam ENT Exam: Mucous Membranes Moist, Normal Exam - Neck Exam Neck Exam: Full ROM - Respiratory Exam Respiratory Exam: NORMAL BREATHING PATTERN. absent: Wheezes - Cardiovascular Exam Cardiovascular Exam: +S1, +S2, Murmur. absent: Bradycardia, Tachycardia - GI/Abdominal Exam GI & Abdominal Exam: Soft, Normal Bowel Sounds. absent: Tenderness - Extremities Exam Extremities Exam: Normal Capillary Refill, Tenderness. absent: Full ROM Additional comments: dec range of motion in right lower extremity and right upper extremity; dorsalis pedis pulses strong and intact bilaterally - Back Exam Additional comments: dec ROM - Neurological Exam Neurological Exam: Alert, Awake, CN II-XII Intact, Oriented x3, Reflexes Normal Neuro motor strength exam: Left Upper Extremity: 4 Right Upper Extremity: 4, Left Lower Extremity: 4, Right Lower Extremity: 4 Additional comments: intention tremor noted - more apparent with left upper extremity - Psychiatric Exam Psychiatric exam: Normal Affect, Normal Mood - Skin Skin Exam: Dry, Warm Assessment and Plan - Assessment and Plan (Free Text) Assessment: (1) Metabolic encephalopathy Assessment & Plan: Fever noted 102.9 around 3AM 10/14- Responded to tylenol Afebrile since CXR shows biapical pleural thickening in the upper lung das- likely chronic- Could be secondary to patient's former profession working in a [employer] Patient worked there for nearly 15 years. F/U Chest CT at this time Patient on Vanc/Zosyn and Azithromycin for broad spectrum (Started 10/14). As per ID continue Zosyn and Azithromycin (Vanco held) stopped IVF on 10/15 On Florastor Neuro on the case- F/U recommendations. Will hold off on MRI at this time in light of patient having had back surgery in the past. repeat Head CT negative for acute changes. blood cultures and urine cultures negative Status: Acute (2) Osteoarthritis Assessment & Plan: Ortho on the case- F/U Recommendations Imaging studies show osteoarthritis. There was questionable tib/fib fracture noted on an earlier study- however follow up XRAY imaging was negative. Ultram PRN Encourage ambulation WITH assistance. Out of bed to chair as tolerated F/U Physical therapy recommendations Status: Chronic (3) Fall Assessment & Plan: See aforementioned F/U Physical Therapy recommendations Status: Acute (4) HTN (hypertension) Assessment & Plan: On Norvasc 5 mg here. Enalapril 5 mg PO (Hold Parameters in place) Lotrel- Non formularly Monitor Pressures Status: Chronic (5) Cardiac murmur Assessment & Plan: Echo: normal LV systolic fxn, diastolic dysfunction F/U Cardiology recommendations Status: Chronic (6) Hyperlipidemia Assessment & Plan: Lipid Panel: Triglycerides 69, Cholesterol 170, LDL 93, HDL 33 On Crestor 20 mg PO HS and Lovaza 1 gm PO BID Status: Chronic (7) Constipation Assessment & Plan: On Colace Monitor Status: Chronic (8) Prophylactic measure Assessment & Plan: Lovenox 40 mg SC daily GI Prophylaxis: Protonix 40 mg PO daily Cont to monitor Status: Acute <Ilene Jones - Last Filed: 10/15/17 23:40> Objective - Vital Signs/Intake and Output Vital Signs (last 24 hours): Temp Pulse Resp BP Pulse Ox 97.3 F L 71 20 116/62 96 10/15/17 15:00 10/15/17 16:26 10/15/17 15:00 10/15/17 15:00 10/15/17 15:00 Intake and Output: 10/15/17 10/16/17 18:59 06:59 Intake Total 1000 Balance 1000 - Medications Medications: Current Medications Acetaminophen (Tylenol 650 Mg Supp) 650 mg MO Q4 PRN PRN Reason: Fever >100.4 F Last Admin: 10/14/17 04:12 Dose: 650 mg Amlodipine Besylate (Norvasc) 5 mg PO DAILY [facility] Last Admin: 10/15/17 10:47 Dose: 5 mg Aspirin (Aspirin Chewable) 81 mg PO DAILY [facility] Last Admin: 10/15/17 10:46 Dose: 81 mg Calcium/Vitamin D (Oyster Shell Calcium/Vitamin D 500 Mg-200 Iu) 1 tab PO DAILY [facility] Last Admin: 10/15/17 10:46 Dose: 1 tab Docusate Sodium (Colace) 100 mg PO DAILY [facility] Last Admin: 10/15/17 10:47 Dose: 100 mg Enalapril Maleate (Vasotec) 5 mg PO DAILY [facility] Last Admin: 10/15/17 10:46 Dose: 5 mg Enoxaparin Sodium (Lovenox) 40 mg SC DAILY [facility] Last Admin: 10/15/17 10:51 Dose: 40 mg Vancomycin/Sodium Chloride (Vancomycin 1 Gm/Ns 200 Ml) 1 gm in 200 mls @ 133 mls/hr IVPB Q24H [facility] PRN Reason: Protocol Stop: 10/19/17 08:01 Last Admin: 10/14/17 14:02 Dose: Not Given Piperacillin Sod/Tazobactam Sod (Zosyn 3.375 Gm Iv Premix) 3.375 gm in 50 mls @ 200 mls/hr IVPB Q8H [facility] PRN Reason: Protocol Last Admin: 10/15/17 21:38 Dose: 200 mls/hr Azithromycin 500 mg/ Sodium (Chloride) 250 mls @ 250 mls/hr IVPB DAILY [facility] PRN Reason: Protocol Last Admin: 10/15/17 10:46 Dose: 250 mls/hr Aockk-8-Hhun Ethyl Esters (Lovaza) 1 gm PO BID [facility] Last Admin: 10/15/17 17:23 Dose: 1 gm Pantoprazole Sodium (Protonix Ec Tab) 40 mg PO DAILY [facility] Last Admin: 10/15/17 10:46 Dose: 40 mg Rosuvastatin Calcium (Crestor) 20 mg PO HS [facility] Last Admin: 10/14/17 21:13 Dose: 20 mg Saccharomyces Boulardii (Florastor) 250 mg PO BID [facility] Last Admin: 10/15/17 17:23 Dose: 250 mg Tramadol HCl (Ultram) 25 mg PO TID PRN PRN Reason: Pain, moderate (4-7) Last Admin: 10/15/17 17:29 Dose: 25 mg - Labs Labs: 10/15/17 07:56 10/15/17 07:56 Assessment and Plan (1) Fever Status: Acute (2) Community acquired bacterial pneumonia Status: Acute (3) TIA (transient ischemic attack) Status: Acute (4) Fall Status: Acute (5) HTN (hypertension) Status: Chronic (6) Primary osteoarthritis of right knee Status: Acute
--- NOTE | 2017-10-15 14:28 | CT ---
PROCEDURE: CT Chest with contrast HISTORY: rule out infiltrates; inconclusive CXR imaging COMPARISON: None. TECHNIQUE: Contiguous axial images were obtained through the chest with intravenous contrast enhancement. Sagittal and coronal reconstructions were performed. IV contrast: Visipaque 320, 100 cc Radiation dose (DLP): 402.18 mGy-cm. This CT exam was performed using one or more of the following dose reduction techniques: Automated exposure control, adjustment of the mA and/or kV according to patient size, and/or use of iterative reconstruction technique. FINDINGS: LUNGS: Limited nonspecific ground-glass opacity appreciated at the upper lung zones. Respiratory motion degrades quality of the examination somewhat. No definite alveolar infiltrates are identified bilaterally or distinct pulmonary mass. The central airways appear clear. Clear lungs. Visualized airway clear. MEDIASTINUM: Unremarkable thoracic aorta. No aneurysm or dissection. Prominent cardiomegaly noted. Main pulmonary artery is dilated up to 4.5 cm suggestive of pulmonary artery hypertension. Clinically correlate further. No significant lymphadenopathy. PLEURA: No pleural fluid. No pneumothorax. BONES: Multiple old healed left rib fractures identified the left 3rd, 4th, 5th, 6th and 7th ribs. UPPER ABDOMEN: Cholelithiasis within a contracted gallbladder. OTHER FINDINGS: None. IMPRESSION: 1. Respiratory motion noted limiting evaluation of the lungs, however, limited ground-glass opacities appreciated at the bilateral upper lobes which is nonspecific. No definite alveolitis, pleural or pericardial effusion. No definite pulmonary mass evident. 2. Prominent main pulmonary artery measuring 4.5 cm suspicious for pulmonary artery hypertension. Clinically correlate nevertheless. Cardiomegaly is reiterated. 3. Multiple old healed left rib fractures as per above. 4. Incidental cholelithiasis.
--- NOTE | 2017-10-15 20:06 | PN ---
DATE: 10/15/2017 SUBJECTIVE: The patient is delirious according to son who is at the bedside. The patient does not appear to be in any respiratory distress. PHYSICAL EXAMINATION: VITAL SIGNS: Blood pressure 151/72, heart rate 86, temperature 97.2, respirations 20. HEENT: Pale conjunctivae. CHEST: Basilar rhonchi. HEART: S1 and S2, regular. ABDOMEN: Soft. EXTREMITIES: Bilateral knee swelling. LABORATORY DATA: Hemoglobin and hematocrit 10.1 and 30.1, white count 7.4 and platelet count 143,000. Today's SMA-7 is within normal limits except for glucose of 128. Ankle x-ray performed yesterday, no acute displaced fracture or dislocation. Lower extremity CAT scan performed yesterday, no acute displaced fracture or dislocation, severe tricompartmental degenerative osteoarthritis worse in the lateral compartment with loss of joint space and vacuum phenomenon. Small suprapatellar joint effusion. Thoracic spine x-ray, normal study. Lumbar spine x-ray, no acute fracture, multilevel degenerative disk disease worse at L4-5. ASSESSMENT: 1. Status post fall. 2. Altered mental status. 3. . 4. Mildly dilated aortic root and mild pulmonary hypertension as per the echocardiography study. 5. Hypertension. RECOMMENDATIONS: Continue aspirin 81 mg once a day, IV Zithromax 500 mg daily and Crestor at 20 mg once a day. Lovenox 20 mg subcutaneously once a day, Norvasc 5 mg once a day. Continue IV Zosyn, IV vancomycin. Blood culture 24 hours. We will follow chest CT scan that was performed today. Rasheed Galdamez MD
--- NOTE | 2017-10-15 23:14 | CP.PCM.PN ---
Subjective - Date & Time of Evaluation Date of Evaluation: 10/15/17 Time of Evaluation: 23:14 - Subjective Subjective: CHIEF COMPLAINTS TODAY : AFEBRILE VSS. Awake but confused to time and place. Denies abdominal pain, shortness of breath, chest pain. ROS. as per daughter and observation. HEENT : N. Resp : No SOB wheezing, cough Cardio : No CP, PND orthopnea GI : No abd. 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 Musculoskel : N Ext. : Pedal pulses intact, no edema or calf pain Derm : N Psych : N. PE. Pt. is awake, CONFUSED, in no distress. V.S As noted in the chart Head ,ear nose,throat and eyes : Normal. Neck : Supple with normal carotids. Lungs: DECREASED BREATH SOUNDS AT THE BASES. Heart : S1 & S2 normal . . No murmur. S4 + Abd : Soft non tender with normal bowel sounds. Neuro : Moves all ext. with no localized deficit. Ext : No edema with intact pulses. Neg. calf tenderness Derm : No rashes or decubitus ulcer. Radiology/Labs REVIEWED . Objective - Vital Signs/Intake and Output Vital Signs (last 24 hours): Temp Pulse Resp BP Pulse Ox 97.3 F L 71 20 116/62 96 10/15/17 15:00 10/15/17 16:26 10/15/17 15:00 10/15/17 15:00 10/15/17 15:00 Intake and Output: 10/15/17 10/16/17 18:59 06:59 Intake Total 1000 Balance 1000 - Medications Medications: Current Medications Acetaminophen (Tylenol 650 Mg Supp) 650 mg CA Q4 PRN PRN Reason: Fever >100.4 F Last Admin: 10/14/17 04:12 Dose: 650 mg Amlodipine Besylate (Norvasc) 5 mg PO DAILY [facility] Last Admin: 10/15/17 10:47 Dose: 5 mg Aspirin (Aspirin Chewable) 81 mg PO DAILY [facility] Last Admin: 10/15/17 10:46 Dose: 81 mg Calcium/Vitamin D (Oyster Shell Calcium/Vitamin D 500 Mg-200 Iu) 1 tab PO DAILY [facility] Last Admin: 10/15/17 10:46 Dose: 1 tab Docusate Sodium (Colace) 100 mg PO DAILY [facility] Last Admin: 10/15/17 10:47 Dose: 100 mg Enalapril Maleate (Vasotec) 5 mg PO DAILY [facility] Last Admin: 10/15/17 10:46 Dose: 5 mg Enoxaparin Sodium (Lovenox) 40 mg SC DAILY [facility] Last Admin: 10/15/17 10:51 Dose: 40 mg Vancomycin/Sodium Chloride (Vancomycin 1 Gm/Ns 200 Ml) 1 gm in 200 mls @ 133 mls/hr IVPB Q24H [facility] PRN Reason: Protocol Stop: 10/19/17 08:01 Last Admin: 10/14/17 14:02 Dose: Not Given Piperacillin Sod/Tazobactam Sod (Zosyn 3.375 Gm Iv Premix) 3.375 gm in 50 mls @ 200 mls/hr IVPB Q8H [facility] PRN Reason: Protocol Last Admin: 10/15/17 21:38 Dose: 200 mls/hr Azithromycin 500 mg/ Sodium (Chloride) 250 mls @ 250 mls/hr IVPB DAILY [facility] PRN Reason: Protocol Last Admin: 10/15/17 10:46 Dose: 250 mls/hr [id number] Ethyl Esters (Lovaza) 1 gm PO BID [facility] Last Admin: 10/15/17 17:23 Dose: 1 gm Pantoprazole Sodium (Protonix Ec Tab) 40 mg PO DAILY [facility] Last Admin: 10/15/17 10:46 Dose: 40 mg Rosuvastatin Calcium (Crestor) 20 mg PO HS [facility] Last Admin: 10/14/17 21:13 Dose: 20 mg Saccharomyces Boulardii (Florastor) 250 mg PO BID [facility] Last Admin: 10/15/17 17:23 Dose: 250 mg Tramadol HCl (Ultram) 25 mg PO TID PRN PRN Reason: Pain, moderate (4-7) Last Admin: 10/15/17 17:29 Dose: 25 mg - Labs Labs: 10/15/17 07:56 10/15/17 07:56 Assessment and Plan (1) Fever Assessment & Plan: blood cultures negative to date. Urine cultures negative to date. Patient on IV antibiotics. Follow-up cultures and adjust antibiotics. Status: Acute (2) Community acquired bacterial pneumonia Assessment & Plan: patient went for CT of the chest with contrast. Follow up results.-Pending. Status: Acute (3) TIA (transient ischemic attack) Assessment & Plan: patient today confused as per daughter to time and place. Consider MRI brain. NEUROLOGY ON BOARD. fOLLOW-UP MENTAL STATUS. Status: Acute (4) Fall Status: Acute (5) HTN (hypertension) Status: Chronic (6) Primary osteoarthritis of right knee Assessment & Plan: c/o right knee pain. right knee swollen with suprapatellar effusion. Slightly warm to touch. Patient has history of primary osteoarthritis of the right knee/as well as left knee. Status: Acute
[2017-10-16] MEDS: Piperacill/Tazo 3.375gm in Dex 3.375 GM/50 ML BAG IVPB SCH ×3 (05:50→20:14)
[2017-10-16 06:31] LABS: BASO % 0.2 % (0.0-2.0); EOS # 0.1 K/uL (0.0-0.7); EOS % 1.4 % (0.0-4.0); HEMOGLOBIN 9.3 g/dL (11.0-16.0); LYMPH # 0.7 K/uL (1.0-4.3); LYMPH % 11.6 % (20.0-40.0); MEAN CELL VOLUME 88.9 fL (81.0-99.0); MEAN CORPUSCULAR HEMOGLOBIN 30.3 pg (27.0-31.0); MEAN CORPUSCULAR HGB CONC 34.1 g/dL (33.0-37.0); MEAN PLATELET VOLUME 8.4 fL (7.2-11.7); MONO # 0.8 K/uL (0.0-0.8); MONO % 14.4 % (0.0-10.0); NEUT # 4.1 K/uL (1.8-7.0); NEUT % 72.4 % (50.0-75.0); RBC 3.09 Mil/uL (3.80-5.20); RED CELL DISTRIBUTION WIDTH 13.7 % (11.5-14.5); WHITE BLOOD COUNT 5.7 K/uL (4.8-10.8)
[2017-10-16 07:02] LABS: ALB/GLOB RATIO 0.9 (1.0-2.1); ALBUMIN 2.8 g/dL (3.5-5.0); ALT/SGPT 55 U/L (9-52); AST/SGOT 54 U/L (14-36); BLOOD UREA NITROGEN 18 mg/dL (7-17); CALCIUM 7.9 mg/dl (8.6-10.4); GFR AFRICAN-AMERICAN > 60; GFR NON-AFRICAN AMERICAN 59
--- NOTE | 2017-10-16 07:56 | CP.PCM.PN ---
Subjective - Date & Time of Evaluation Date of Evaluation: 10/16/17 Time of Evaluation: 07:53 - Subjective Subjective: Ms. Jacobo was seen and examined at the bedside. She is alert, with episode of forgetfulness. She is able to verbalize place ( hospital) and her immediate family member., but unable to remember time. She is able to follow some simple commands such as coordination test, raising her right upper extremities, unable to raise lower extremities. However, she is able to flex and extend her toes. According to her family member ( [id number]), she has poor appetite including fluids. She has bilateral lower extremities SCD's. She remains on telesitter for patient safety. There was no untoward events overnight. Objective - Vital Signs/Intake and Output Vital Signs (last 24 hours): Temp Pulse Resp BP Pulse Ox 98.5 F 75 20 125/62 95 10/15/17 23:15 10/15/17 23:15 10/15/17 23:15 10/15/17 23:15 10/15/17 23:15 Intake and Output: 10/16/17 10/16/17 06:59 18:59 Output Total 300 Balance -300 - Medications Medications: Current Medications Acetaminophen (Tylenol 650 Mg Supp) 650 mg IA Q4 PRN PRN Reason: Fever >100.4 F Last Admin: 10/14/17 04:12 Dose: 650 mg Amlodipine Besylate (Norvasc) 5 mg PO DAILY [facility] Last Admin: 10/15/17 10:47 Dose: 5 mg Aspirin (Aspirin Chewable) 81 mg PO DAILY [facility] Last Admin: 10/15/17 10:46 Dose: 81 mg Calcium/Vitamin D (Oyster Shell Calcium/Vitamin D 500 Mg-200 Iu) 1 tab PO DAILY [facility] Last Admin: 10/15/17 10:46 Dose: 1 tab Docusate Sodium (Colace) 100 mg PO DAILY [facility] Last Admin: 10/15/17 10:47 Dose: 100 mg Enalapril Maleate (Vasotec) 5 mg PO DAILY [facility] Last Admin: 10/15/17 10:46 Dose: 5 mg Enoxaparin Sodium (Lovenox) 40 mg SC DAILY [facility] Last Admin: 10/15/17 10:51 Dose: 40 mg Vancomycin/Sodium Chloride (Vancomycin 1 Gm/Ns 200 Ml) 1 gm in 200 mls @ 133 mls/hr IVPB Q24H [facility] PRN Reason: Protocol Stop: 10/19/17 08:01 Last Admin: 10/14/17 14:02 Dose: Not Given Piperacillin Sod/Tazobactam Sod (Zosyn 3.375 Gm Iv Premix) 3.375 gm in 50 mls @ 200 mls/hr IVPB Q8H [facility] PRN Reason: Protocol Last Admin: 10/16/17 05:50 Dose: 200 mls/hr Azithromycin 500 mg/ Sodium (Chloride) 250 mls @ 250 mls/hr IVPB DAILY [facility] PRN Reason: Protocol Last Admin: 10/15/17 10:46 Dose: 250 mls/hr [id number] Ethyl Esters (Lovaza) 1 gm PO BID [facility] Last Admin: 10/15/17 17:23 Dose: 1 gm Pantoprazole Sodium (Protonix Ec Tab) 40 mg PO DAILY [facility] Last Admin: 10/15/17 10:46 Dose: 40 mg Quetiapine Fumarate (Seroquel) 25 mg PO ONCE ONE Stop: 10/16/17 12:01 Rosuvastatin Calcium (Crestor) 20 mg PO HS [facility] Last Admin: 10/16/17 00:02 Dose: Not Given Saccharomyces Boulardii (Florastor) 250 mg PO BID [facility] Last Admin: 10/15/17 17:23 Dose: 250 mg Tramadol HCl (Ultram) 25 mg PO TID PRN PRN Reason: Pain, moderate (4-7) Last Admin: 10/15/17 17:29 Dose: 25 mg - Labs Labs: 10/16/17 06:25 10/16/17 06:25 - Constitutional Appears: No Acute Distress - Head Exam Head Exam: NORMAL INSPECTION - Neurological Exam Neurological Exam: Alert, Awake Neuro motor strength exam: Left Upper Extremity: 4, Right Upper Extremity: 4, Left Lower Extremity: 2/1, Right Lower Extremity: 2/1 Additional comments: She is awake, with episode of forgetfulness, follows simple commands. Sensation is intact. Assessment and Plan (1) Metabolic encephalopathy Assessment & Plan: Case discussed with Dr. Green, continue all current medical regimen. Recommend to treat any electrolyte abnormality. Pending MRI of the brain without contrast. May give seroquel 25 mg PO one time prior to MRI. Status: Acute
[2017-10-16] MEDS ORDERED: POLYETHYLENE GLYCOL 3350 17 GM/Dose PACKET PO ONE (11:00)
[2017-10-16] MEDS: Calcium-Vit D 500 mg-200 Units Tab UD PO SCH (11:06)
[2017-10-16] MEDS: Enoxaparin 40 mg Syringe SC SCH (11:06)
[2017-10-16] MEDS: Saccharomyces Boulardi 250 mg Cap PO SCH ×2 (11:06→17:29)
[2017-10-16] MEDS: Omega-3-Acid Ethyl Esters 1 GM Cap PO SCH ×2 (11:06→17:29)
[2017-10-16] MEDS: Pantoprazole 40 mg EC Tab PO SCH (11:06)
[2017-10-16] MEDS: Azithromycin 500 MG in Sodium Chloride 0.9% 250 ML IVPB SCH (11:08)
--- NOTE | 2017-10-16 11:27 | MRI ---
PROCEDURE: MRI BRAIN WITHOUT CONTRAST HISTORY: change of mental status COMPARISON: Noncontrast head CT from 10/14/2017. TECHNIQUE: Multiplanar, multisequence MR images of the brain were obtained without intravenous contrast enhancement. FINDINGS: HEMORRHAGE: None DWI: No evidence of an acute or early subacute infarction. BRAIN PARENCHYMA: Basilio-white matter differentiation is preserved. There is no mass, mass effect or abnormal extra-axial fluid collection. There is no territorial infarction. The midline sagittal structures are normal. VENTRICLES: There is moderate age-related global parenchymal volume loss and proportionate enlargement of the ventricles and cortical sulci. CRANIUM: There is normal bone marrow signal pattern. ORBITS: Grossly unremarkable. PARANASAL SINUSES/MASTOIDS: There is a retention cyst/ polyp in the left maxillary sinus. The remaining included paranasal sinuses and mastoid air cells are clear. VASCULAR SYSTEM: There are normal signal voids in the larger intracranial arteries. OTHER FINDINGS: None. IMPRESSION: No acute intracranial abnormality. Moderate age-related global parenchymal volume loss.
--- NOTE | 2017-10-16 11:38 | CP.PCM.PN ---
Subjective - Date & Time of Evaluation Date of Evaluation: 10/16/17 Time of Evaluation: 08:00 - Subjective Subjective: Patient with daughter in law at bedside. Patient states pain is better while in bed, but complains of a lot of pain when trying to stand. No new complaints today. Review of Systems - Review of Systems All systems: reviewed and no additional remarkable complaints except - Constitutional Additional comments: no fever/chills - Cardiovascular Cardiovascular: UNREMARKABLE - Respiratory Respiratory: UNREMARKABLE - Gastrointestinal Gastrointestinal: UNREMARKABLE - Musculoskeletal Musculoskeletal: As Par HPI - Integumentary Integumentary: UNREMARKABLE - Neurological Neurological: Frequent Falls Objective - Vital Signs/Intake and Output Vital Signs (last 24 hours): Temp Pulse Resp BP Pulse Ox 98.8 F 63 20 131/70 99 10/16/17 08:20 10/16/17 08:20 10/16/17 08:20 10/16/17 11:17 10/16/17 08:20 Intake and Output: 10/16/17 10/16/17 06:59 18:59 Output Total 300 Balance -300 - Medications Medications: Current Medications Acetaminophen (Tylenol 650 Mg Supp) 650 mg PA Q4 PRN PRN Reason: Fever >100.4 F Last Admin: 10/14/17 04:12 Dose: 650 mg Amlodipine Besylate (Norvasc) 5 mg PO DAILY [facility] Last Admin: 10/16/17 11:06 Dose: 5 mg Aspirin (Aspirin Chewable) 81 mg PO DAILY [facility] Last Admin: 10/16/17 11:06 Dose: 81 mg Calcium/Vitamin D (Oyster Shell Calcium/Vitamin D 500 Mg-200 Iu) 1 tab PO DAILY [facility] Last Admin: 10/16/17 11:06 Dose: 1 tab Docusate Sodium (Colace) 100 mg PO DAILY [facility] Last Admin: 10/16/17 11:06 Dose: 100 mg Enalapril Maleate (Vasotec) 5 mg PO DAILY [facility] Last Admin: 10/16/17 11:17 Dose: 5 mg Enoxaparin Sodium (Lovenox) 40 mg SC DAILY [facility] Last Admin: 10/16/17 11:06 Dose: 40 mg Vancomycin/Sodium Chloride (Vancomycin 1 Gm/Ns 200 Ml) 1 gm in 200 mls @ 133 mls/hr IVPB Q24H [facility] PRN Reason: Protocol Stop: 10/19/17 08:01 Last Admin: 10/14/17 14:02 Dose: Not Given Piperacillin Sod/Tazobactam Sod (Zosyn 3.375 Gm Iv Premix) 3.375 gm in 50 mls @ 200 mls/hr IVPB Q8H [facility] PRN Reason: Protocol Last Admin: 10/16/17 05:50 Dose: 200 mls/hr Azithromycin 500 mg/ Sodium (Chloride) 250 mls @ 250 mls/hr IVPB DAILY [facility] PRN Reason: Protocol Last Admin: 10/16/17 11:08 Dose: 250 mls/hr Ornvz-0-Hbco Ethyl Esters (Lovaza) 1 gm PO BID [facility] Last Admin: 10/16/17 11:06 Dose: 1 gm Pantoprazole Sodium (Protonix Ec Tab) 40 mg PO DAILY [facility] Last Admin: 10/16/17 11:06 Dose: 40 mg Rosuvastatin Calcium (Crestor) 20 mg PO HS [facility] Last Admin: 10/16/17 00:02 Dose: Not Given Saccharomyces Boulardii (Florastor) 250 mg PO BID [facility] Last Admin: 10/16/17 11:06 Dose: 250 mg Tramadol HCl (Ultram) 25 mg PO TID PRN PRN Reason: Pain, moderate (4-7) Last Admin: 10/15/17 17:29 Dose: 25 mg - Labs Labs: 10/16/17 06:25 10/16/17 06:25 - Constitutional Appears: Well, No Acute Distress - Head Exam Head Exam: ATRAUMATIC - Respiratory Exam Respiratory Exam: NORMAL BREATHING PATTERN - Cardiovascular Exam Additional comments: +DP/PT pulses - Extremities Exam Additional comments: brace intact right knee, mild joint effusion, no erythema, generalized tenderness but improving calves soft NT neg homans - Neurological Exam Neurological Exam: Alert, Awake Neuro motor strength exam: Right Lower Extremity: 5 (+ROM ankle/toes, sensation intact, still mild weakness to PF) - Psychiatric Exam Psychiatric exam: Normal Affect, Normal Mood - Skin Skin Exam: Dry, Intact, Normal Color, Warm Assessment and Plan (1) Primary osteoarthritis of right knee Assessment & Plan: No fracture on CT or xrays knee brace PT/OT WBAT VTE proph orthopedically stable for rehab placement d/w Dr. Larsen, agrees with above f/u Dr. Larsen 2 weeks call for appt [phone] Status: Acute (2) Primary osteoarthritis of left knee Status: Acute (3) Right ankle pain Status: Acute
--- NOTE | 2017-10-16 12:10 | VASCLAB ---
PROCEDURE: Lower Extremity Venous Duplex Exam. HISTORY: r/o dvt PRIORS: None. TECHNIQUE: Bilateral common femoral, femoral, popliteal and posterior tibial, peroneal and great saphenous veins were evaluated. Flow was assessed with color Doppler, compressibility, assessment of phasic flow and augmentation response. Report prepared by David Carreon, BEREKET, RVT FINDINGS: RIGHT: 1. Common Femoral Vein: 1.1. Compressibility - Fully compressible: Thrombus - None : Flow - Phasic: Augmentation -Normal: Reflux - None. 2. Femoral Vein: 2.1. Compressibility - Fully compressible: Thrombus - None : Flow - Phasic: Augmentation -Normal: Reflux - None. 3. Popliteal Vein: 3.1. Compressibility - Fully compressible: Thrombus - None : Flow - Phasic: Augmentation -Normal: Reflux - None. 4. Posterior Tibial Vein: 4.1. Compressibility - Fully compressible: Thrombus - None: Flow - Phasic: Augmentation -Normal: Reflux - None. 5. Peroneal Vein: 5.1. Compressibility - Fully compressible: Thrombus - None: Flow - Phasic: Augmentation -Normal: Reflux - None. 6. Great Saphenous Vein: 6.1. Compressibility - Fully compressible: Thrombus - None: Flow - Phasic: Augmentation - Normal: Reflux - None. LEFT: 1. Common Femoral Vein: 1.1. Compressibility - Fully compressible: Thrombus - None: Flow - Phasic: Augmentation -Normal: Reflux - None. 2. Femoral Vein: 2.1. Compressibility - Fully compressible: Thrombus - None: Flow - Phasic: Augmentation -Normal: Reflux - None. 3. Popliteal Vein: 3.1. Compressibility - Fully compressible: Thrombus - None : Flow - Phasic: Augmentation -Normal: Reflux - None. 4. Posterior Tibial Vein: 4.1. Compressibility - Fully compressible: Thrombus - None: Flow - Phasic: Augmentation -Normal: Reflux - None. 5. Peroneal Vein: 5.1. Compressibility - Fully compressible: Thrombus - None: Flow - Phasic: Augmentation -Normal: Reflux - Severe. 6. Great Saphenous Vein: 6.1. Compressibility - Fully compressible: Thrombus - None: Flow - Phasic: Augmentation - Normal: Reflux - None. OTHER FINDINGS: Right: None significant. Left: None significant. IMPRESSION: Right: No evidence of deep or superficial vein thrombosis of the right lower extremity. Normal valve function noted of the right side. Left: No evidence of deep or superficial vein thrombosis of the left lower extremity. 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
--- NOTE | 2017-10-16 15:50 | MRI ---
PROCEDURE: MR Venography of the Brain HISTORY: r/o venous thrombus COMPARISON: None available. TECHNIQUE: 2D time of flight venography of the brain was performed. Rotating MIP images of the intracranial veins were generated. FINDINGS: SUPERFICIAL VEINS: Superior Sagittal Sinus: Patent. Inferior Sagittal Sinus:Patent. Transverse Sinuses: Patent. Sigmoid Sinuses:Patent. DEEP VEINS: Internal Cerebral Veins: Patent. Vein of Ezekiel: Patent. Straight Sinus: Patent. IMPRESSION: Normal MR Venography of the Brain. No evidence of venous thrombosis.
--- NOTE | 2017-10-16 15:54 | MRI ---
PROCEDURE: Magnetic Resonance Angiography Brain HISTORY: rule out venous thrombus COMPARISON: None available. TECHNIQUE: 3D time of flight MR angiography of the intracranial arteries was performed. Rotating maximum intensity projection images were generated. FINDINGS: INTERNAL CAROTID ARTERIES: Normal flow related signal. The skull base, petrous, cavernous and supraclinoid segments are bilaterally widely patient. ANTERIOR CEREBRAL ARTERIES: Normal flow related signal. A1 and A2 segments are widely patent. Smaller distal branches unremarkable, as visualized. MIDDLE CEREBRAL ARTERIES: Normal flow related signal. M1 and M2 segments are widely patent. Perisylvian branches grossly symmetric. POSTERIOR CIRCULATION: Basilar Artery: Patent. Distal Vertebral Arteries: Patent. Posterior Cerebral Arteries: Patent. Posterior Inferior Cerebellar Arteries: Patent. ANEURYSM/ VASCULAR MALFORMATIONS: None. OTHER FINDINGS: None. IMPRESSION: No evidence of occlusion definite significant stenosis or saccular aneurysm.
--- NOTE | 2017-10-16 17:31 | CP.PCM.DIS ---
Provider - Provider Date of Admission: 10/13/17 11:40 Attending physician: Mark Bowen MD Consults: Cardiology: Dr. Galdamez ID: Dr. Jones Neuro: Dr. Green Ortho: Dr. Guerra Time Spent in preparation of Discharge (in minutes): 45 Diagnosis - Discharge Diagnosis (1) Fall Status: Resolved (2) Fever Status: Resolved (3) Metabolic encephalopathy Status: Resolved (4) Primary osteoarthritis of left knee Status: Chronic (5) Primary osteoarthritis of right knee Status: Chronic (6) Hyperlipidemia Status: Chronic (7) Hypertension Status: Chronic Hospital Course - Lab Results Lab Results: Micro Results 10/14/17 03:27 Blood-Venous Blood Culture - Preliminary NO GROWTH AFTER 48 HOURS 10/14/17 03:27 Blood-Venous Blood Culture - Preliminary NO GROWTH AFTER 48 HOURS 10/14/17 21:30 Naris MRSA Culture (Admit) - Final MRSA NOT DETECTED 10/14/17 03:20 Urine,Catheterized Urine Culture - Final No Growth (<1,000 CFU/ML) Most Recent Lab Values WBC 5.7 K/uL (4.8-10.8) 10/16/17 06:25 RBC 3.09 Mil/uL (3.80-5.20) L 10/16/17 06:25 Hgb 9.3 g/dL (11.0-16.0) L 10/16/17 06:25 Hct 27.4 % (34.0-47.0) L 10/16/17 06:25 MCV 88.9 fL (81.0-99.0) 10/16/17 06:25 MCH 30.3 pg (27.0-31.0) 10/16/17 06:25 MCHC 34.1 g/dL (33.0-37.0) 10/16/17 06:25 RDW 13.7 % (11.5-14.5) 10/16/17 06:25 Plt Count 156 K/uL (130-400) 10/16/17 06:25 MPV 8.4 fL (7.2-11.7) 10/16/17 06:25 Neut % (Auto) 72.4 % (50.0-75.0) 10/16/17 06:25 Lymph % (Auto) 11.6 % (20.0-40.0) L 10/16/17 06:25 [place] % (Auto) 14.4 % (0.0-10.0) H 10/16/17 06:25 Eos % (Auto) 1.4 % (0.0-4.0) 10/16/17 06:25 Baso % (Auto) 0.2 % (0.0-2.0) 10/16/17 06:25 Neut # (Auto) 4.1 K/uL (1.8-7.0) 10/16/17 06:25 Lymph # (Auto) 0.7 K/uL (1.0-4.3) L 10/16/17 06:25 [place] # (Auto) 0.8 K/uL (0.0-0.8) 10/16/17 06:25 Eos # (Auto) 0.1 K/uL (0.0-0.7) 10/16/17 06:25 Baso # (Auto) 0.0 K/uL (0.0-0.2) 10/16/17 06:25 Neutrophils % (Manual) 81 % (50-75) H 10/15/17 07:56 Lymphocytes % (Manual) 5 % (20-40) L 10/15/17 07:56 Monocytes % (Manual) 13 % (0-10) H 10/15/17 07:56 Eosinophils % (Manual) 1 % (0-4) 10/15/17 07:56 Platelet Estimate Normal (NORMAL) 10/15/17 07:56 Hypochromasia (manual) Slight 10/15/17 07:56 Poikilocytosis (manual Slight 10/15/17 07:56 Anisocytosis (manual) Slight 10/15/17 07:56 Target Cells Slight 10/15/17 07:56 ESR 100 mm/hr (0-20) H 10/15/17 07:56 D-Dimer, Quantitative 1671 ng/mlDDU (0-243) H 10/16/17 11:15 pO2 40 mm/Hg (30-55) 10/14/17 03:35 VBG pH 7.44 (7.32-7.43) H 10/14/17 03:35 VBG pCO2 36 mmHg (40-60) L 10/14/17 03:35 VBG HCO3 24.9 mmol/L 10/14/17 03:35 VBG Total CO2 25.6 mmol/L (22-28) 10/14/17 03:35 VBG O2 Sat (Calc) 84.6 % (40-65) H 10/14/17 03:35 VBG Base Excess 0.6 mmol/L (0.0-2.0) 10/14/17 03:35 VBG Potassium 3.9 mmol/L (3.6-5.2) 10/14/17 03:35 Sodium 133.0 mmol/l (132-148) 10/14/17 03:35 Chloride 101.0 mmol/L (98-107) 10/14/17 03:35 Glucose 149 mg/dl (65-105) H 10/14/17 03:35 Lactate 0.9 mmol/L (0.7-2.1) 10/14/17 03:35 Sodium 137 mmol/L (132-148) 10/16/17 06:25 Potassium 4.0 mmol/L (3.6-5.2) 10/16/17 06:25 Chloride 102 mmol/L (98-107) 10/16/17 06:25 Carbon Dioxide 24 mmol/L (22-30) 10/16/17 06:25 Anion Gap 15 (10-20) 10/16/17 06:25 BUN 18 mg/dL (7-17) H 10/16/17 06:25 Creatinine 0.9 mg/dL (0.7-1.2) 10/16/17 06:25 Est GFR ( Amer) > 60 10/16/17 06:25 Est GFR (Non-Af Amer) 59 10/16/17 06:25 POC Glucose (mg/dL) 137 mg/dL (65-110) H 10/16/17 16:41 Random Glucose 131 mg/dL (65-105) H 10/16/17 06:25 Lactic Acid 1.1 mmol/L (0.7-2.1) 10/14/17 13:40 Uric Acid 3.3 mg/dL (2.2-7.5) 10/15/17 07:56 Calcium 7.9 mg/dl (8.6-10.4) L 10/16/17 06:25 Phosphorus 2.6 mg/dL (2.5-4.5) 10/16/17 06:25 Magnesium 2.2 mg/dL (1.6-2.3) 10/16/17 06:25 Total Bilirubin 0.6 mg/dL (0.2-1.3) 10/16/17 06:25 AST 54 U/L (14-36) H 10/16/17 06:25 ALT 55 U/L (9-52) H D 10/16/17 06:25 Alkaline Phosphatase 111 U/L (38-126) 10/16/17 06:25 Total Creatine Kinase 77 U/L (30-135) 10/13/17 09:44 CK-MB (Mass) 0.40 ng/mL (0.0-3.38) 10/13/17 09:44 Troponin I 0.0430 ng/mL (0.00-0.120) 10/13/17 09:44 C-Reactive Protein 194.40 mg/L (0.0-9.9) H 10/15/17 07:56 Total Protein 6.0 g/dL (6.3-8.3) L 10/16/17 06:25 Albumin 2.8 g/dL (3.5-5.0) L 10/16/17 06:25 Globulin 3.2 gm/dL (2.2-3.9) 10/16/17 06:25 Albumin/Globulin Ratio 0.9 (1.0-2.1) L 10/16/17 06:25 Triglycerides 69 mg/dL (0-149) 10/15/17 07:56 Cholesterol 170 mg/dL (0-199) 10/15/17 07:56 LDL Cholesterol Direct 93 mg/dL (0-129) 10/15/17 07:56 HDL Cholesterol 33 mg/dL (30-70) 10/15/17 07:56 25-OH Vitamin D Total 36.4 NG/ML (30.0-100.0) 10/16/17 06:25 Venous Blood Potassium 3.9 mmol/L (3.6-5.2) 10/14/17 03:35 Urine Color Yellow (YELLOW) 10/14/17 03:54 Urine Clarity Hazy (Clear) 10/14/17 03:54 Urine pH 7.0 (5.0-8.0) 10/14/17 03:54 Ur Specific Ponce 1.013 (1.003-1.030) 10/14/17 03:54 Urine Protein 2+ mg/dL (NEGATIVE) H 10/14/17 03:54 Urine Glucose (UA) Normal mg/dL (Normal) 10/14/17 03:54 Urine Ketones Negative mg/dL (NEGATIVE) 10/14/17 03:54 Urine Blood 2+ (NEGATIVE) H 10/14/17 03:54 Urine Nitrate Negative (NEGATIVE) 10/14/17 03:54 Urine Bilirubin Negative (NEGATIVE) 10/14/17 03:54 Urine Urobilinogen Normal mg/dL (0.2-1.0) 10/14/17 03:54 Ur Leukocyte Esterase Neg Edna/uL (Negative) 10/14/17 03:54 Urine WBC (Auto) 2 /hpf (0-5) 10/14/17 03:54 Urine RBC (Auto) 19 /hpf (0-3) H 10/14/17 03:54 LEXIE 6 Profile Negative (NEGATIVE) 10/15/17 07:56 Influenza Typ A,B (EIA) Negative for flu a/b (NEGATIVE) 10/15/17 09:16 Ur L.pneumophila Ag Negative (NEGATIVE) 10/14/17 22:04 Mycoplasma pneumon IgM Negative (NEGATIVE) 10/15/17 07:56 - Hospital Course Hospital Course: "HPI: 87 year old female with past medical history significant for HTN, Hyperlipidemia, Arthritis presents s/p fall four days earlier. Patient lives with son who was able to provide most of the medical history. Patient was apparently ambulating with her walker at home when she fell over. Patient was able to get back up and walk about though she complained of pain in her lower extremities. Patient typically ambulates with the use of a four point walker. She does not normally feel short of breath per her son. Son's noted an acute change in mentation overnight around 2/3AM on 10/14/17. Per family members , patient was slurring speech and not acting her norm. When vitals were checked , patient spiked a fever of 102.9. Because of acute change in mentation, and exam findings at that time, code stroke was called. Stat head CT, Vitals, labs and cultures were obtained. Neuro was consulted and recommendations were made. Per family, patient's fever responded to tylenol administration. Patient returned to baseline within 1.5 hours. Patient does admit to generalized aches. Patient denies subjective chills, chest pain, palpitations, dyspnea, headaches, dysuria or paresthesias at this time." Patient was admitted for fall. Patient had the above described episode which caused further testing to be ordered. Patient had rib xrays, shoulder xrays, knee xrays, head CT, cervical spine xray, lumbar spine xray, thoracic spine xray which did not show any acute fractures. Patient is stable as per ortho. Patient was evaluated by neurology who did not think patient had a stroke. Head CT was negative. Brain MRI was negative. Head MRA/MRV was negative as well. Patient is stable as per Neuro, Dr. Green. Patient's d-dimer was elevated most likely as an acute phase reaction. Lower extremity dopplers showed no DVT. Echo was done which showed normal LV systolic function, diastolic dysfunction, normal chamber size, mildly dilated aortic root. Patient's labs were monitored. Patient's white count was normal. Patient's blood cultures were negative for 48 hours and urine cultures were negative for 48 hours. Patient was checked for MRSA in the naris which was also negative. Dr. Jones (ID) placed patient on antibiotics when patient was febrile, but due to all negative labs, antibiotics were discontinued. Patient is stable as per Dr. Jones. This is a summary of the patient's hospital course please see chart for full details. Discharge Exam - Head Exam Head Exam: ATRAUMATIC, NORMAL INSPECTION, NORMOCEPHALIC - Eye Exam Eye Exam: EOMI, Normal appearance - ENT Exam ENT Exam: Mucous Membranes Moist - Respiratory Exam Respiratory Exam: Clear to PA & Lateral, NORMAL BREATHING PATTERN - Cardiovascular Exam Cardiovascular Exam: REGULAR RHYTHM, RRR, +S1, +S2 - GI/Abdominal Exam GI & Abdominal Exam: Normal Bowel Sounds, Soft. absent: Tenderness - Extremities Exam Extremities exam: normal inspection - Neurological Exam Neurological exam: Alert - Psychiatric Exam Psychiatric exam: Normal Affect, Normal Mood - Skin Skin Exam: Intact, Normal Color, Warm Discharge Plan - Follow Up Plan Condition: STABLE Disposition: REHAB FACILITY/REHAB UNIT Additional Instructions: Patient stable for discharge as per Dr. Nava. Patient to go to [facility] to regain her strength and work with physical therapy. After [facility] patient to follow up with primary doctor. Patient to continue home medications. If fever returns or symptoms worsen patient to return to Emergency Room immediately.
--- NOTE | 2017-10-16 22:37 | PN ---
DATE: 10/16/2017. SUBJECTIVE: The patient is less confused according to the son who is at the bed side. The patient denies any chest pain or shortness of breath. PHYSICAL EXAMINATION: VITAL SIGNS: Blood pressure heart rate 76, temperature 98.2 and respirations 20. HEENT: Pale conjunctivae. CHEST: Clear. HEART: S1 and S2 regular. EXTREMITIES: Bilateral knee swelling. LABORATORY DATA: Today's SMA-7 is within normal limits except for glucose 131 and BUN is 18. Hemoglobin and hematocrit is 9.7 and 27.4. White count and platelet count are within normal limits. Venous Doppler of the lower extremities, no evidence of DVT, valvular incompetence noted at the left peroneal vein. Brain MRI, no acute intracranial abnormality. Moderate age related global parenchymal volume loss. MRA, no evidence of occlusion, definite significant stenosis or saccular aneurysm. ASSESSMENT: 1. Status post fall. 2. Bilateral knee osteoarthritis. 3. Systemic hypertension. 4. Rule out underlying sepsis. The patient's blood culture are negative after 48 hours. RECOMMENDATIONS: Continue current aspirin, Crestor, prophylactic subcutaneous Lovenox and Norvasc at 5 mg once a day. Continue IV Zithromax and IV Zosyn. Continue Vasotec at 5 mg daily. Will sign off the case, if there are no surgical plans and please re-consult if needed. Rasheed Galdamez MD
[2017-10-17] MEDS: Piperacill/Tazo 3.375gm in Dex 3.375 GM/50 ML BAG IVPB SCH (05:09)
[2017-10-17 06:28] LABS: BASO % 0.6 % (0.0-2.0); EOS # 0.1 K/uL (0.0-0.7); EOS % 1.9 % (0.0-4.0); HEMOGLOBIN 9.5 g/dL (11.0-16.0); LYMPH # 0.7 K/uL (1.0-4.3); LYMPH % 12.5 % (20.0-40.0); MEAN CELL VOLUME 88.8 fL (81.0-99.0); MEAN CORPUSCULAR HEMOGLOBIN 30.9 pg (27.0-31.0); MEAN CORPUSCULAR HGB CONC 34.8 g/dL (33.0-37.0); MEAN PLATELET VOLUME 8.1 fL (7.2-11.7); MONO # 0.8 K/uL (0.0-0.8); MONO % 15.1 % (0.0-10.0); NEUT # 3.7 K/uL (1.8-7.0); NEUT % 69.9 % (50.0-75.0); RBC 3.09 Mil/uL (3.80-5.20); RED CELL DISTRIBUTION WIDTH 13.6 % (11.5-14.5); WHITE BLOOD COUNT 5.3 K/uL (4.8-10.8)
[2017-10-17 06:57] LABS: ALB/GLOB RATIO 0.9 (1.0-2.1); ALBUMIN 2.9 g/dL (3.5-5.0); ALT/SGPT 59 U/L (9-52); AST/SGOT 58 U/L (14-36); BLOOD UREA NITROGEN 16 mg/dL (7-17); CALCIUM 8.4 mg/dl (8.6-10.4); GFR AFRICAN-AMERICAN > 60; GFR NON-AFRICAN AMERICAN > 60
--- NOTE | 2017-10-17 08:02 | CP.PCM.PN ---
Subjective - Date & Time of Evaluation Date of Evaluation: 10/17/17 Time of Evaluation: 08:01 - Subjective Subjective: Ms. Jacobo was seen and examined at the bedside. She is more alert, oriented. She is able to tolerate PO intake being offered by family member. She denies any pain or discomfort, follows commands. MRI of the brain showed no intracranial findings. She remains on telesitter for patient safety. Her temp. last night was 100.4. There was no untoward events overnight. Objective - Vital Signs/Intake and Output Vital Signs (last 24 hours): Temp Pulse Resp BP Pulse Ox 98.8 F 66 20 126/64 96 10/17/17 04:44 10/17/17 04:44 10/17/17 04:44 10/17/17 04:44 10/17/17 04:44 Intake and Output: 10/17/17 10/17/17 06:59 18:59 Intake Total 50 Output Total 900 Balance -850 - Medications Medications: Current Medications Acetaminophen (Tylenol 650 Mg Supp) [address] Q4 PRN PRN Reason: Fever >100.4 F Last Admin: 10/17/17 01:13 Dose: 650 mg Amlodipine Besylate (Norvasc) 5 mg PO DAILY [facility] Last Admin: 10/16/17 11:06 Dose: 5 mg Aspirin (Aspirin Chewable) 81 mg PO DAILY [facility] Last Admin: 10/16/17 11:06 Dose: 81 mg Calcium/Vitamin D (Oyster Shell Calcium/Vitamin D 500 Mg-200 Iu) 1 tab PO DAILY [facility] Last Admin: 10/16/17 11:06 Dose: 1 tab Docusate Sodium (Colace) 100 mg PO DAILY [facility] Last Admin: 10/16/17 11:06 Dose: 100 mg Enalapril Maleate (Vasotec) 5 mg PO DAILY [facility] Last Admin: 10/16/17 11:17 Dose: 5 mg Enoxaparin Sodium (Lovenox) 40 mg SC DAILY [facility] Last Admin: 10/16/17 11:06 Dose: 40 mg Vancomycin/Sodium Chloride (Vancomycin 1 Gm/Ns 200 Ml) 1 gm in 200 mls @ 133 mls/hr IVPB Q24H [facility] PRN Reason: Protocol Stop: 10/19/17 08:01 Last Admin: 10/14/17 14:02 Dose: Not Given Piperacillin Sod/Tazobactam Sod (Zosyn 3.375 Gm Iv Premix) 3.375 gm in 50 mls @ 200 mls/hr IVPB Q8H [facility] PRN Reason: Protocol Last Admin: 10/17/17 05:09 Dose: 200 mls/hr Azithromycin 500 mg/ Sodium (Chloride) 250 mls @ 250 mls/hr IVPB DAILY [facility] PRN Reason: Protocol Last Admin: 10/16/17 11:08 Dose: 250 mls/hr [id number] Ethyl Esters (Lovaza) 1 gm PO BID [facility] Last Admin: 10/16/17 17:29 Dose: Not Given Pantoprazole Sodium (Protonix Ec Tab) 40 mg PO DAILY [facility] Last Admin: 10/16/17 11:06 Dose: 40 mg Rosuvastatin Calcium (Crestor) 20 mg PO HS [facility] Last Admin: 10/16/17 21:24 Dose: Not Given Saccharomyces Boulardii (Florastor) 250 mg PO BID [facility] Last Admin: 10/16/17 17:29 Dose: Not Given Tramadol HCl (Ultram) 25 mg PO TID PRN PRN Reason: Pain, moderate (4-7) Last Admin: 10/15/17 17:29 Dose: 25 mg - Labs Labs: 10/17/17 06:20 10/17/17 06:20 - Constitutional Appears: No Acute Distress - Head Exam Head Exam: NORMAL INSPECTION - Neurological Exam Neurological Exam: Alert, Awake Neuro motor strength exam: Left Upper Extremity: 4, Right Upper Extremity: 4, Left Lower Extremity: 3, Right Lower Extremity: 2/1 Additional comments: Neurological improved from previous examination, she is more alert this am. Assessment and Plan (1) Metabolic encephalopathy Assessment & Plan: Case discussed with Dr. Green, continue all current medical, physical, and occupational therapies. With no acute intracranial findings, neurology is signing off and patient is for discharge to a subacute rehab. Status: Resolved
[2017-10-17] MEDS: Omega-3-Acid Ethyl Esters 1 GM Cap PO SCH (09:50)
[2017-10-17] MEDS: Calcium-Vit D 500 mg-200 Units Tab UD PO SCH (09:50)
[2017-10-17] MEDS: Saccharomyces Boulardi 250 mg Cap PO SCH (09:50)
[2017-10-17] MEDS: Enoxaparin 40 mg Syringe SC SCH (09:51)
[2017-10-17] MEDS: Azithromycin 500 MG in Sodium Chloride 0.9% 250 ML IVPB SCH (09:51)
[2017-10-17] MEDS: Pantoprazole 40 mg EC Tab PO SCH (09:51)
[2017-10-17 12:04] VITALS: BP 145/77; PULSE 68; RESP 18; TEMP 98.4; O2SAT 97
--- NOTE | 2017-10-17 13:07 | CP.PCM.PN ---
Subjective - Date & Time of Evaluation Date of Evaluation: 10/17/17 Time of Evaluation: 11:45 - Subjective Subjective: Patient with family at bedside. Patient tolerating PT much better today. Patient able to get out of bed and is comfortable in chair. No new complaints of pain today. Denies CP/SOB/dizziness/palp/numbness/tingling Review of Systems - Review of Systems All systems: reviewed and no additional remarkable complaints except - Cardiovascular Cardiovascular: As Per HPI - Respiratory Respiratory: As Per HPI - Gastrointestinal Gastrointestinal: As Per HPI - Genitourinary Genitourinary: UNREMARKABLE - Musculoskeletal Musculoskeletal: As Par HPI - Neurological Neurological: As Per HPI - Hematologic/Lymphatic Hematologic: UNREMARKABLE Objective - Vital Signs/Intake and Output Vital Signs (last 24 hours): Temp Pulse Resp BP Pulse Ox 98.4 F 68 18 145/77 97 10/17/17 11:49 10/17/17 11:49 10/17/17 11:49 10/17/17 11:49 10/17/17 11:49 Intake and Output: 10/17/17 10/17/17 06:59 18:59 Intake Total 50 240 Output Total 900 Balance -850 240 - Medications Medications: Current Medications Acetaminophen (Tylenol 650 Mg Supp) 650 mg DC Q4 PRN PRN Reason: Fever >100.4 F Last Admin: 10/17/17 01:13 Dose: 650 mg Amlodipine Besylate (Norvasc) 5 mg PO DAILY [facility] Last Admin: 10/17/17 09:51 Dose: 5 mg Aspirin (Aspirin Chewable) 81 mg PO DAILY [facility] Last Admin: 10/17/17 09:50 Dose: 81 mg Calcium/Vitamin D (Oyster Shell Calcium/Vitamin D 500 Mg-200 Iu) 1 tab PO DAILY [facility] Last Admin: 10/17/17 09:50 Dose: 1 tab Docusate Sodium (Colace) 100 mg PO DAILY [facility] Last Admin: 10/17/17 09:50 Dose: 100 mg Enalapril Maleate (Vasotec) 5 mg PO DAILY [facility] Last Admin: 10/17/17 09:50 Dose: 5 mg Enoxaparin Sodium (Lovenox) 40 mg SC DAILY [facility] Last Admin: 10/17/17 09:51 Dose: 40 mg Vancomycin/Sodium Chloride (Vancomycin 1 Gm/Ns 200 Ml) 1 gm in 200 mls @ 133 mls/hr IVPB Q24H [facility] PRN Reason: Protocol Stop: 10/19/17 08:01 Last Admin: 10/14/17 14:02 Dose: Not Given Piperacillin Sod/Tazobactam Sod (Zosyn 3.375 Gm Iv Premix) 3.375 gm in 50 mls @ 200 mls/hr IVPB Q8H [facility] PRN Reason: Protocol Last Admin: 10/17/17 05:09 Dose: 200 mls/hr Azithromycin 500 mg/ Sodium (Chloride) 250 mls @ 250 mls/hr IVPB DAILY [facility] PRN Reason: Protocol Last Admin: 10/17/17 09:51 Dose: 250 mls/hr [id number] Ethyl Esters (Lovaza) 1 gm PO BID [facility] Last Admin: 10/17/17 09:50 Dose: 1 gm Pantoprazole Sodium (Protonix Ec Tab) 40 mg PO DAILY [facility] Last Admin: 10/17/17 09:51 Dose: 40 mg Rosuvastatin Calcium (Crestor) 20 mg PO HS [facility] Last Admin: 10/16/17 21:24 Dose: Not Given Saccharomyces Boulardii (Florastor) 250 mg PO BID [facility] Last Admin: 10/17/17 09:50 Dose: 250 mg Tramadol HCl (Ultram) 25 mg PO TID PRN PRN Reason: Pain, moderate (4-7) Last Admin: 10/15/17 17:29 Dose: 25 mg - Labs Labs: 10/17/17 06:20 10/17/17 06:20 - Constitutional Appears: Well (patient sitting out of bed in chair, comfortable), No Acute Distress - Head Exam Head Exam: ATRAUMATIC - Respiratory Exam Respiratory Exam: NORMAL BREATHING PATTERN - Cardiovascular Exam Additional comments: +DP/PT pulses - Extremities Exam Additional comments: sensation intact, brace intact calves soft Nt neg homans effusion mild - Neurological Exam Neurological Exam: Alert, Awake Neuro motor strength exam: Right Lower Extremity: 5 - Psychiatric Exam Psychiatric exam: Normal Affect, Normal Mood - Skin Skin Exam: Dry, Intact, Normal Color, Warm Assessment and Plan (1) Primary osteoarthritis of right knee Assessment & Plan: No fracture on CT or xrays knee brace PT/OT WBAT VTE proph orthopedically stable for rehab placement at [facility] d/w Dr. Larsen, agrees with above f/u Dr. Larsen 2 weeks call for appt [phone] Status: Chronic (2) Primary osteoarthritis of left knee Status: Chronic (3) Right ankle pain Status: Acute
== END 2017-10-17 13:13 | DRG 553 ==
LOC: C.ER 08:48 → C.6T 11:40 → C.9E 11:40 → UNDOADMIN 11:40 → C.9E 13:21 → C.5S 13:21 → UNDOADMIN 10-14 03:04 → C.6T 10-14 03:04 → C.5S 10-14 03:04 → C.6T 10-14 03:25
PROVIDERS: ADMIT Internal Medicine; ATTEND Internal Medicine
DX: M17.0 Bilateral primary osteoarthritis of knee (principal); G93.41 Metabolic encephalopathy; J15.9 Unspecified bacterial pneumonia; M65.9 Synovitis and tenosynovitis, unspecified; K21.9 Gastro-esophageal reflux disease without esophagitis; I51.7 Cardiomegaly; I11.9 Hypertensive heart disease without heart failure; E78.5 Hyperlipidemia, unspecified; Z85.07 Personal history of malignant neoplasm of pancreas; Z91.81 History of falling